=== PATIENT | male | born 1965 | race Caucasian/White ===

== ENCOUNTER 2016-08-12 17:16 | Inpatient (IN) ==
[2016-08-12] MEDS ORDERED: Nitroglycerin 0.4 MG TAB.SUBL SL ONE (18:36)
[2016-08-12 18:57] LABS: Hematocrit 38.4 % (37.5-50.1); Hemoglobin 13.5 g/dL (12.9-16.9)
[2016-08-12 19:10] LABS: BUN/Creatinine Ratio 22 (6-26); Blood Urea Nitrogen 20 mg/dL (8-26); Calcium 9.1 mg/dL (8.6-10.8); Carbon Dioxide 20 mEq/L (19-29); Chloride 109 mEq/L (98-109); Glucose 67 mg/dL (70-99); Osmolality,Calculated 289 (280-300); Potassium 3.6 mEq/L (3.5-4.5); Sodium 139 mEq/L (136-145); eGFR For African Americans > 60 (> 60); eGFR For Non-African Americans > 60 (> 60)
--- NOTE | 2016-08-12 20:21 | Emergency Department Note ---
Disposition Clinical Impression: Chest pain Qualifiers: Chest pain type: unspecified Qualified Code(s): R07.9 - Chest pain, unspecified Disposition: Admitted As Inpatient Condition: Good Time of Disposition: 19:50 General Adult HPI - General Chief complaint: ED Chest Pain Stated complaint: chest pain Time Seen by Provider: 08/12/16 18:03 Source: patient, EMS Limitations: no limitations Nursing Notes Reviewed: Yes Vital Signs Reviewed: Yes - History of Present Illness HPI Narrative: Chest pain about 10 days ago for which he was seen at outside hospital and had a stress test and was sent home. His pain was in the left side of his chest and sharp. Today while working midafternoon at rest he had chest pain that was more diffuse discomfort with pressure and went to his left arm. He is a diet controlled diabetic who is morbidly obese. He has had blood pressure high cholesterol. 1.2 years ago he has stress test and was also offered a heart catheterization in decline. He has no prior confirmed heart disease. His pain was relieved prior to arrival with aspirin and nitroglycerin glycerin pills pain was moderate has resolved. No clear exacerbating or alleviating factors Onset (ago): hour(s) Radiation: neck Pain Severity: moderate Pain Scale: 5 Quality: aching Consistency: now resolved Improves with: nothing Worsens with: nothing Associated symptoms: Reports: chest pain. Denies: confusion, cough, diaphoresis , malaise, nausea/vomiting - Related Data Home Medications Medication Instructions Recorded Confirmed Amitriptyline [Elavil] 25 mg PO HS 08/09/15 02/28/16 Budesonide/Formoterol 160/4.5 2 puff IH BIDR 08/09/15 02/28/16 [Symbicort 160/4.5] Cetirizine HCl [Zyrtec] 10 mg PO DAILY 08/09/15 02/28/16 Cholecalciferol (Vitamin D3) 1,000 unit PO DAILY 08/09/15 02/28/16 [Vitamin D] Gabapentin [Neurontin] 1,200 mg PO TID 08/09/15 02/28/16 Montelukast [Singulair] 10 mg PO DAILY 08/09/15 02/28/16 Omeprazole [PriLOSEC] 20 mg PO BIDAC 08/09/15 02/28/16 Paroxetine [Paxil] 30 mg PO DAILY 08/09/15 02/28/16 Albuterol Sulfate [Proventil Hfa] 2 puff IH QID 10/15/15 02/28/16 Amlodipine Besylate 10 mg PO DAILY 12/07/15 02/28/16 Aspirin 81 mg PO DAILY 12/07/15 02/28/16 Amiloride/HCTZ 5-50mg [Moduretic 1 tab PO DAILY 02/28/16 02/28/16 5-50mg] Docusate [Colace] 100 mg PO DAILY PRN 02/28/16 02/28/16 Allergies Allergy/AdvReac Type Severity Reaction Status Date / Time No Known Allergies Allergy Verified 08/09/15 14:28 Constitutional: Denies: fever, chills, weakness, weight change Eyes: Denies: eye pain, eye discharge, vision change ENT ED: Denies: ear pain, throat pain, dental pain, hearing loss, epistaxis, congestion, dysphagia Cardiovascular: Reports: as per HPI, chest pain Respiratory: Denies: cough, dyspnea, wheezes, hemoptysis, stridor Gastrointestinal: Denies: abdominal pain, nausea, vomiting, diarrhea, constipation, hematemesis, melena, hematochezia Genitourinary: Denies: urgency, dysuria, frequency, hematuria Musculoskeletal: Denies: back pain, neck pain, arthralgia, myalgia Integumentary: Denies: rash, abrasion, lesions Neurological: Denies: headache, weakness, numbness, paresthesias, confusion, abnormal gait, vertigo Psychiatric: Denies: anxiety, depression, suicidal thoughts, homicidal thoughts , auditory hallucinations, visual hallucinations Endocrine: Denies: fatigue Hematological/Lymphatic: Denies: easy bleeding, easy bruising Allergic/Immunologic: Denies: facial swelling, urticaria Past Medical History - Past Medical History Medical history: Reports: asthma, diabetes Psychiatric history: Reports: depression - Social History Smoking Status: Never smoker Smokeless Tobacco Status: No Alcohol use: Reports: none Drug use: Reports: none Physical Exam - General Limitations: no limitations General appearance: alert, in no apparent distress - Head Head exam: atraumatic, normocephalic, normal inspection - Eye Eye exam: Present: normal appearance, PERRL, EOMI - Expanded Eye Exam Pupils: Left: reactive - ENT ENT exam: normal exam, normal oropharynx, mucous membranes moist - Expanded ENT Exam External ear exam: Present: normal external inspection Mouth exam: Present: normal external inspection Teeth exam: Present: normal inspection Throat exam: Present: normal inspection - Neck Neck exam: Present: normal inspection, full ROM, trachea midline - Chest Chest inspection: Present: normal inspection, symmetric chest wall rise - Respiratory Respiratory exam: Present: normal lung sounds bilaterally - Cardiovascular Cardiovascular exam: Present: regular rate, normal rhythm, normal heart sounds - Abdominal Exam Abdominal exam: Present: soft, Non-Tender. Absent: tenderness, distention, guarding, rebound, rigidity - Extremities Exam Extremities exam: Present: normal inspection, full ROM. Absent: tenderness, pedal edema - Expanded Upper Extremity Exam Shoulder exam: Present: normal inspection, full ROM Arm exam: Present: normal inspection, full ROM Elbow exam: Present: normal inspection, full ROM Forearm/Wrist exam: Present: normal inspection, full ROM Hand exam: Present: normal inspection, full ROM Vascular exam: Normal: capillary refill, radial pulse - Expanded Lower Extremity Exam Hip/Pelvis exam: Present: normal inspection, full ROM Upper leg exam: Present: normal inspection, full ROM Knee exam: Present: normal inspection, full ROM Lower leg exam: Present: normal inspection, full ROM Ankle exam: Present: normal inspection, full ROM Foot/toe exam: Present: normal inspection, full ROM Neurovascular/Tendon exam: Absent: motor deficit, sensory deficit, tendon deficit - Back Exam Back exam: Present: normal inspection, full ROM. Absent: tenderness - Neurological Exam Neurological exam: Present: alert, oriented X3 - Expanded Neurological Exam Patient oriented to: Present: person, place, time Coma Scale Eye Opening: Spontaneous Coma Scale Motor Response: Obeys Commands Coma Scale Verbal Response: Oriented Coma Scale Total: 15 - Psychiatric Psychiatric exam: Present: normal affect, normal mood - Skin Skin exam: Present: warm, dry, intact, normal color Course Course Narrative: Patient was pain-free on my initial evaluation with developed chest pain again was given sublingual nitroglycerin. Pain once again improved. He has no pain at time of admission. All results prior to admission or unremarkable and his admission was discussed with the hospitalist at 7:58 PM Vital Signs Temperature 97.6 F 08/12/16 17:17 Pulse Rate 63 08/12/16 17:17 Respiratory Rate 16 08/12/16 17:17 Blood Pressure 127/94 08/12/16 17:17 O2 Sat by Pulse Oximetry 98 08/12/16 17:17 Temperature 97.6 F 08/12/16 17:17 Pulse Rate 64 08/12/16 19:00 Respiratory Rate 18 08/12/16 19:00 Blood Pressure 121/84 08/12/16 19:00 O2 Sat by Pulse Oximetry 97 08/12/16 19:00 Oxygen Delivery Oxygen Delivery Nasal Cannula Medical Decision Making - Lab Data Result diagrams: 08/12/16 18:48 08/12/16 18:48 Lab Results 08/12/16 08/12/16 08/12/16 Range/Units 18:48 18:48 18:48 Hgb 13.5 (12.9-16.9) g/dL Hct 38.4 (37.5-50.1) % Sodium 139 (136-145) mEq/L Potassium 3.6 (3.5-4.5) mEq/L Chloride 109 (98-109) mEq/L Carbon Dioxide 20 (19-29) mEq/L BUN 20 (8-26) mg/dL Creatinine 0.90 (0.72-1.25) mg/dL Est GFR ( Amer) > 60 (> 60) Est GFR (Non-Af Amer) > 60 (> 60) BUN/Creatinine Ratio 22 (6-26) Glucose 67 L (70-99) mg/dL Calculated Osmolality 289 (280-300) Calcium 9.1 (8.6-10.8) mg/dL Troponin I 0.01 (0-0.03) ng/mL - EKG Data EKG #1 EKG attestation: Yes I reviewed and interpreted this EKG. EKG results narrative: Normal sinus rhythm. No acute injury pattern. Intervals unremarkable EKG shows normal: sinus rhythm
[2016-08-12] MEDS ORDERED: *HR* Morphine 2 MG/ML SYRINGE IVP PRN (21:34)
[2016-08-12] MEDS ORDERED: Ondansetron 4 MG/2 ML VIAL IVP PRN (21:34)
[2016-08-12] MEDS ORDERED: Naloxone 0.4 MG/ML INJ IVP PRN (21:34)
[2016-08-12] MEDS ORDERED: hydrOXYzine pamoate 25 MG CAPSULE PO PRN (21:36)
[2016-08-12] MEDS ORDERED: Ipratropium/Albuterol Neb 3 ML IH PRN (21:40)
[2016-08-12] MEDS ORDERED: D5% in Water 1,000 ML IV PRN (21:43)
[2016-08-12] MEDS ORDERED: *HR* Dextrose 50 % in Water (Syg) 50 ML SYRINGE IVP PRN (21:43)
[2016-08-12] MEDS ORDERED: Dextrose Gel 15 GM PO PRN ×2 (21:43)
[2016-08-12] MEDS ORDERED: 0.9 % Sodium Chloride 1,000 ML IVC SCH (21:45)
--- NOTE | 2016-08-12 21:46 | Internal Med History&Physical ---
Date of Encounter: 08/12/16 Time of Encounter: 21:44 Assessment and Plan (1) Chest pain Current visit: Yes Status: Acute With very typical pain Continue Xarelto, start baby aspirin, Lipitor, consider starting beta mechelle May try to obtain stress test report from [facility] Order echocardiogram, start Nitrol paste, cardiology consult, telemetry, follow troponins, morphine as needed Qualifiers: Chest pain type: unspecified Qualified Code(s): R07.9 - Chest pain, unspecified (2) Hypertension Current visit: Yes Status: Acute Add hydralazine as needed Qualifiers: Hypertension type: essential hypertension Qualified Code(s): I10 - Essential (primary) hypertension (3) Diabetes Current visit: Yes Status: Acute Insulin sliding scale Qualifiers: Diabetes mellitus type: type 2 Diabetes mellitus complication status: without complication Diabetes mellitus skilled nursing insulin use: without intermediate frame tender use Qualified Code(s): E11.9 - Type 2 diabetes mellitus without complications (4) Chronic superficial venous thrombosis of left lower extremity Current visit: No Status: Chronic Continue Xarelto (5) Hypercoagulable state Current visit: No Status: Suspected Omeprazole for GI prophylaxis, he is a full code, is to be admitted as inpatient , high risk for ACS, time spent on this admission 40 minutes Internal Medicine - H&P: HPI Chief complaint: Chest pain Plans for Post Hospital Care: Home History of present illness: Mr. Ho is a 50 year old male from the [place], with past medical history of diabetes type 2 not insulin-dependent, hypertension, hyperlipidemia, right leg DVT currently on Xarelto. Comes to the emergency room complaining of chest pain that started at 2:30 PM, 7 out of 10 in intensity and radiated to the left arm and neck, pressure-like that improved with nitroglycerin. At the moment he is still complaining of chest pressure 3 out of 10 in intensity. His glucose was 67, his troponin is negative, his EKG is unremarkable, chest x-ray is normal. The patient says that he had a recent normal stress test at [facility] on August 02 and after that he felt bad for a few days and then better, but today the pain came back. [place] short of breath and easy at times with some lightheadedness. No other symptoms present. Past Med Surg Social Fam HX - Past Medical History Medical history: asthma, diabetes (Not insulin-dependent), other (Angioedema with lisinopril, asthma, right leg DVT with hypercoagulable state, superficial thrombophlebitis, asthma, vocal cord dysfunction, hyperlipidemia, mood disorder , left gynecomastia, DJD, fibromyalgia, hypertension) Psychiatric history: depression - Past Surgical History Surgical History: other (Dental surgery) - Social History Smoking Status: Never smoker (Chewed tobacco for 35 years but quit) Smokeless Tobacco Status: No Alcohol use: none (Quitting in ) Drug use: none - Additional Family History Additional family history: Father with CAD who had normal troponins with his [facility] , CK D, mom with lung cancer, sister with DVT Internal Medicine - H&P: Meds Budesonide/Formoterol 160/4.5 [Symbicort 160/4.5] 2 puff IH BIDR 08/09/15 [ History] Cetirizine HCl [Zyrtec] 10 mg PO DAILY 08/09/15 [History] Gabapentin [Neurontin] 1,200 mg PO TID 08/09/15 [History] Montelukast [Singulair] 10 mg PO DAILY 08/09/15 [History] Omeprazole [PriLOSEC] 40 mg PO DAILY 08/09/15 [History] Paroxetine [Paxil] 30 mg PO DAILY 08/09/15 [History] Albuterol Sulfate [Proventil Hfa] 2 puff IH QID 10/15/15 [History] Amlodipine Besylate 10 mg PO DAILY 12/07/15 [History] Aspirin 325 mg PO DAILY 12/07/15 [History] Albuterol Neb [Proventil Neb] 2.5 mg IH Q4HR 08/12/16 [History] Celecoxib [Celebrex] 200 mg PO DAILY 08/12/16 [History] Fluticasone Propionate Nasal [Flonase] 50 mcg NS BID 08/12/16 [History] Guaifenesin/Codeine Phosphate [Guaifen-Codeine 100-10 mg/5 ml] 10 ml PO TID PRN 08/12/16 [History] Hydroxyzine HCl 25 mg PO QID PRN 08/12/16 [History] Lactobacillus Acidophilus [Acidophilus] 1 cap PO BID 08/12/16 [History] Methocarbamol [Robaxin] 500 mg PO TID 08/12/16 [History] Tiotropium [place] [Spiriva Respimat] 2 puff IH DAILY 08/12/16 [History] Triamterene/HCTZ 37.5/25mg [Dyazide] 0.5 tab PO DAILY 08/12/16 [History] Allergies dabigatran etexilate [From Pradaxa] Allergy (Verified 08/12/16 20:37) Hives lisinopril Allergy (Verified 08/12/16 20:37) Anaphylaxis gluten Adverse Reaction (Verified 08/12/16 20:37) Gastrointestinal Upset pregabalin [From Lyrica] Adverse Reaction (Verified 08/12/16 20:37) Blurry Vision sertraline [From Zoloft] Adverse Reaction (Verified 08/12/16 20:37) Agitated All Systems PM: A 10-system review of systems was performed and is negative for pertinent findings except as documented above in the HPI. Review of systems: Had some nausea earlier today, no abdominal pain, other systems out of the 10 reviewed were negative - Constitutional Vitals: Temp Pulse Resp BP Pulse Ox 97.8 F 64 18 121/84 97 08/12/16 20:36 08/12/16 19:00 08/12/16 20:36 08/12/16 20:36 08/12/16 19:00 - Head Head exam: Present: atraumatic, normocephalic - Eye Eye exam: Present: PERRL, conjuntiva pink, sclera anicteric Pupils: Present: PERRL - Neck Neck exam general surgery: Present: supple, trachea midline. Absent: lymphadenopathy - Respiratory Respiratory exam: Present: CTAB. Absent: accessory muscle use, rales, rhonchi, wheezes - Cardiovascular Cardiovascular exam: Present: RRR, +S1, +S2. Absent: diastolic murmur, gallop, rubs, systolic murmur - GI/Abdominal GI/Abdominal exam: Present: normal bowel sounds, soft, no peritoneal signs. Absent: distended, tenderness - Extremities Exam Extremities exam: Present: warm, radial pulses palpable and symetrical. Absent : calf tenderness, cyanotic, pedal edema - Neurological Exam Neurological exam: Present: CN II-XII intact, oriented X3, no focal deficits. Absent: pronater drift, facial droop, speech deficit - Skin Skin exam: Present: dry, intact Internal Med - H&P Results - Labs CBC & Chem 7: 08/12/16 18:48 08/12/16 18:48
[2016-08-12] MEDS: Nitroglycerin 1 INCH/GM PACKET TP SCH (22:26)
[2016-08-12] MEDS: Gabapentin 400 MG CAPSULE PO SCH (22:33)
[2016-08-12] MEDS: Aspirin 81 MG TAB.CHEW PO SCH (22:33)
[2016-08-12] MEDS: Insulin LISPRO 300 UNITS/3 ML VIAL SQ SCH (22:34)
[2016-08-12] MEDS: D5% in 0.45% NACL 1,000 ML IVC SCH (22:38)
[2016-08-12] MEDS: Budesonide/Formoterol 160/4.5 MDI IH SCH ×2 (23:00→23:22)
[2016-08-13 01:56] LABS: BUN/Creatinine Ratio 19 (6-26); Blood Urea Nitrogen 20 mg/dL (8-26); Calcium 8.9 mg/dL (8.6-10.8); Carbon Dioxide 21 mEq/L (19-29); Chloride 110 mEq/L (98-109); Chol/HDL Ratio 4.6 (0-4.9); Cholesterol 170 mg/dL (< 200); Glucose 136 mg/dL (70-99); HDL Cholesterol 37 mg/dL (40-59); LDL Cholesterol,Calculated 96 mg/dL (0-99); Osmolality,Calculated 293 (280-300); Potassium 3.6 mEq/L (3.5-4.5); Sodium 139 mEq/L (136-145); Triglycerides 184 mg/dL (< 150); eGFR For African Americans > 60 (> 60); eGFR For Non-African Americans > 60 (> 60)
[2016-08-13] MEDS: Nitroglycerin 1 INCH/GM PACKET TP SCH ×3 (06:51→17:08)
[2016-08-13] MEDS: Insulin LISPRO 300 UNITS/3 ML VIAL SQ SCH ×4 (08:18→20:22)
[2016-08-13] MEDS: Aspirin 81 MG TAB.CHEW PO SCH (08:24)
[2016-08-13] MEDS: Gabapentin 400 MG CAPSULE PO SCH ×3 (08:24→20:23)
[2016-08-13] MEDS ORDERED: amLODIPine 5 MG TABLET PO SCH (09:00)
[2016-08-13] MEDS ORDERED: Perflutren Lipid Microsphere 1.3 ML in 0.9 % Sodium Chloride 8.7 ML IVP ONE (09:26)
--- NOTE | 2016-08-13 10:32 | Cardiology Consult Note ---
Date of Encounter: 08/13/16 Time of Encounter: 10:23 Assessment and Plan (1) Chest pain Current Visit: Yes Status: Acute Recurrent chest pain. Typical and atypical features.Recent work-up at [facility] on 08/02/16 for the same pain. Work-up negative per pt. We will order records. Troponin negative x 3. EKG shows no acute changes. TTE pending. TTE in 2013- EF 60-65%, no significant valvular disease. Multiple cardiac risk factors including DM type II, HTN, HLD, obesity, nicotine use, and extensive family history. Recommend starting asa and statin as you have done. Stop norvasc and start beta- mechelle. Aggressive risk factor modification. Close out-pt cardiology follow-up. Qualifiers: Chest pain type: unspecified Qualified Code(s): R07.9 - Chest pain, unspecified (2) Diabetes Current Visit: Yes Status: Acute Insulin sliding scale. States blood sugars are brittle, no well controlled at home. Hospitalist following. Qualifiers: Diabetes mellitus type: type 2 Diabetes mellitus complication status: without complication Diabetes mellitus assistant terminal manager insulin use: without penitentiary use Qualified Code(s): E11.9 - Type 2 diabetes mellitus without complications (3) Hypertension Current Visit: Yes Status: Acute B/p controlled. Qualifiers: Hypertension type: essential hypertension Qualified Code(s): I10 - Essential (primary) hypertension Discussion w patient/family: The assessment and plan as outlined above was discussed with the patient and/or family members who expressed understanding and agreement. All questions were answered. Thank you for involving us in the care of your patient. Please call with any questions. History of Present Illness Consult date: 08/13/16 Requesting physician: Glo Quinones Consult reason: Recurrent chest pain Chief complaint: Chest pain History of present illness: Mr. Ho is a 50 year old male with a history of DM type II, hypertension, hyperlipidemia, TOMAS on c-pap, and obesity who presents with chest pain. He c/o intermittent left sided chest pressure radiating to his neck and left arm. He associates his symptoms with nausea and SOB. Physical activity increases his pain. His pain also occurs at rest. His pain is relieved with NTG. He was seen at [facility] 08/02/16 for the same pain and underwent a stress test that was negative per his report. He continued to have pain after his admission. Continues to have left sided pressure on my exam. Past Med Surg Social Fam HX - Past Medical History Medical history: asthma, diabetes, fibromyalgia, hyperlipidemia, hypertension, seizures, other Psychiatric history: depression - Past Surgical History Surgical History: other - Social History Smoking Status: Never smoker Smokeless Tobacco Status: No Alcohol use: none Drug use: none - Family History Grandfather Living Status: Cause of : aortic anyeurism Hx Family Cardiac Disorders: Yes Father Living Status: Cause of : heart attack Hx Family Cardiac Disorders: Yes (heart attack at 53) Mother Hx Family Cardiac Disorders: Yes (heart attack at 53) Medications and Allergies Budesonide/Formoterol 160/4.5 [Symbicort 160/4.5] 2 puff IH BIDR 08/09/15 [ History] Cetirizine HCl [Zyrtec] 10 mg PO DAILY 08/09/15 [History] Gabapentin [Neurontin] 1,200 mg PO TID 08/09/15 [History] Montelukast [Singulair] 10 mg PO DAILY 08/09/15 [History] Omeprazole [PriLOSEC] 40 mg PO DAILY 08/09/15 [History] Paroxetine [Paxil] 30 mg PO DAILY 08/09/15 [History] Albuterol Sulfate [Proventil Hfa] 2 puff IH QID 10/15/15 [History] Amlodipine Besylate 10 mg PO DAILY 12/07/15 [History] Albuterol Neb [Proventil Neb] 2.5 mg IH Q4HR 08/12/16 [History] Celecoxib [Celebrex] 200 mg PO DAILY 08/12/16 [History] Fluticasone Propionate Nasal [Flonase] 50 mcg NS BID 08/12/16 [History] Guaifenesin/Codeine Phosphate [Guaifen-Codeine 100-10 mg/5 ml] 10 ml PO TID PRN 08/12/16 [History] Hydroxyzine HCl 25 mg PO QID PRN 08/12/16 [History] Lactobacillus Acidophilus [Acidophilus] 1 cap PO BID 08/12/16 [History] Methocarbamol [Robaxin] 500 mg PO TID 08/12/16 [History] Tiotropium [place] [Spiriva Respimat] 2 puff IH DAILY 08/12/16 [History] Triamterene/HCTZ 37.5/25mg [Dyazide] 0.5 tab PO DAILY 08/12/16 [History] Allergies dabigatran etexilate [From Pradaxa] Allergy (Verified 08/12/16 20:37) Hives lisinopril Allergy (Verified 08/12/16 20:37) Anaphylaxis gluten Adverse Reaction (Verified 08/12/16 20:37) Gastrointestinal Upset pregabalin [From Lyrica] Adverse Reaction (Verified 08/12/16 20:37) Blurry Vision sertraline [From Zoloft] Adverse Reaction (Verified 08/12/16 20:37) Agitated All Systems Review: A 10-system review of systems was performed and is negative for pertinent findings except as documented above in the HPI. Physical Examination Vital Signs, Last 4 Hours Temp Pulse Resp BP Pulse Ox 08/13/16 08:00 97.4 F L 66 16 125/77 96 General: Conversant, No Apparent Distress, Other (Obese male) HEENT: Atraumatic, Normocephaly, Mucus Membranes Moist Neck: No JVD, Normal carotid pulses Cardiac: Reg Rate and Rhythm, Normal S1 and S2, No Murmur Lungs: Normal Breath Sounds, No Wheeze, Rales, Rhonchi Neuro: Alert and responsive, No focal deficits noted Abdomen: Soft, Non-Tender Skin: No rashes noted on visualized skin Musculoskeletal: No Chest Wall Tenderness Extremities: No Clubbing, No Cyanosis, No Edema, Normal Pulses Results 08/12/16 18:48 08/13/16 01:14 Lab Results 08/13/16 08/13/16 08/13/16 01:14 01:14 06:58 Sodium 139 Potassium 3.6 Chloride 110 H Carbon Dioxide 21 BUN 20 Creatinine 1.04 Glucose 136 H Calcium 8.9 Troponin I 0.00 0.01 - Imaging and Cardiology Stress Test: pending (Records ordered. Stress test in 2012 negative for ischemia.) Echo: pending Consult Discharge Plan - Plan [facility]errals: [facility]Primary Care Provider[facility] -
[2016-08-13] MEDS: Budesonide/Formoterol 160/4.5 MDI IH SCH (10:36)
--- NOTE | 2016-08-13 11:25 | ECHO - Doppler Report ---
Echo with Imaging Enhancement Agent Name: Dillon Ho Date of Study: 08/13/2016 Date: 1965 Ht: 70.0 in Medical Record#: [id number] Age: 50 Wt: 304.0 lb Gender: Male BSA: 2.49 Order #: [id number] Location: [facility] Room #: 3B Reading Physician: Iker Lemon DO, FACNayan, JASS ESCUDERO Boat Dispatcher: Lida Whittaker Ordering Physician: Osman Calderon MD Primary Physician: [facility] Indications: Chest pain Impressions: Technically sub-optimal due to body habitus. LVEF 60-65%. Grossly normal LV chamber size and function. Mild concentric left ventricular hypertrophy. Moderate left ventricular diastolic dysfunction. Grossly, the right ventricle appears mildly dilated with normal function. Unable to estimate RVSP due to lack of TR jet. No obvious significant valvular dysfunction. Left Ventricular Wall Motion: Rest Echo Findings All wall segments showed normal motion. Findings: Study Quality * Technically sub-optimal due to body habitus. ECG Findings * Normal sinus rhythm. Left Ventricle * LVEF 60-65%. * Grossly normal LV chamber size and function. * Mild concentric left ventricular hypertrophy. * Moderate left ventricular diastolic dysfunction. Right Ventricle * The right ventricle appears mildly dilated with normal function. Left Atrium * Left atrium is not well visualized. Grossly appears at least mildly dilated. Right Atrium * Right atrium is not well visualized. Interatrial Septum * Interatrial septum not well evaluated. Aortic Valve * Aortic valve not well visualized. * No aortic regurgitation. * No aortic stenosis. Mitral Valve * Normal mitral valve structure and function. * No mitral regurgitation. * No mitral stenosis. Tricuspid Valve * Tricuspid valve not well visualized. * Trace tricuspid regurgitation. * Unable to estimate RVSP due to lack of TR jet. Pulmonic Valve * Pulmonic valve not well visualized. Aorta * Normally sized aortic root. Pericardium * The pericardium appears normal. IVC * The IVC is not well evaluated. Pulmonary Artery * Pulmonary artery not well visualized. History Hypertension Diabetes Family History of CAD 02/25/13 a Previous Echo was performed. Contrast: Definity 1.3 ml in 8.7 ml of saline 2 ml. Measurements: BP: 97/ 58 2D Normal Values RVIDd: 3.20 cm <2.7 cm IVSd: 1.40 cm 0.6 - 1.0 cm LVIDd: 4.20 cm 3.7 - 5.6 cm LVPWd: 1.40 cm 0.6 - 1.1 cm LVIDs: 3.10 cm 1.5 - 3.6 cm AO: 3.00 cm < 4.0 cm LA: 3.60 cm 2.0 - 4.0cm %FS: 26.20 cm >25 % LA volume: 35 Mitral Valve Peak E:.90 m/sec Peak A:.72 m/sec E/A Ratio:1.3 Peak E' Lat Chaim:7.6 cm/s Peak E' Med Chaim:7.21 cm/s E/E' Lat Ratio:11.8 E/E' Med Ratio:12.5 Tricuspid Valve TV Regurg Peak Grad: 7.00mmHg TV Regurg Peak Chaim: 1.30m/sec Updated by Iker Lemon DO, LICO, JASS ESCUDERO on 08/13/2016 11:17:32 AM electronically signed on 08/13/2016 11:19:15 AM with status of Final Wall Motion [place]: 1=Normal, 2=Hypokinesis, 3=Akinesis, 4=Dyskinesis, 5=Aneurysmal, 6=Hyperkinetic, X=Not Visualized (Blank)=Missing
--- NOTE | 2016-08-13 11:58 | Electrocardiograph Report ---
[facility] Test Date: 2016-08-12 Pat Name: Dillon Ho Department: 104 Room: 3B47 Gender: M Cyber Systems Engineer: OZZY : 1965 Requested By: Sukhdev Mann Order Number: [id number] Reading MD: Arya Springer MD Measurements Intervals [place] Rate: 62 P: 30 DC: 213 QRS: -3 QRSD: 68 T: 16 QT: 391 QTc: 396 Interpretive Statements SINUS RHYTHM WITH FIRST DEGREE AV BLOCK POOR R WAVE PROGRESSION Electronically Signed On 08-13-16 11:57:23 EST by Arya Springer MD
[2016-08-13] MEDS ORDERED: GI Cocktail 40 ML EACH PO PRN (13:01)
[2016-08-13] MEDS: *HR* Rivaroxaban 10 MG TABLET PO SCH (16:22)
[2016-08-13] MEDS: D5% in 0.45% NACL 1,000 ML IVC SCH (16:22)
--- NOTE | 2016-08-13 16:43 | Internal Med Progress Note ---
Date of Encounter: 08/13/16 Time of Encounter: 12:30 - Assessment and plan (1) Chest pain Current Visit: Yes Status: Acute Assessment and plan: Patient continues to endorse chest pressure but denies overt pain. Troponins negative 3. Chest x-ray negative. Stress test at [facility] was reviewed per cardiology and reported as negative on 08/02/16. Echocardiogram revealing ejection fraction of 60-65% with moderate diastolic dysfunction. Cardiology is on board. Plan is to rule out GERD with PPI and GI cocktail. If he is still symptomatic, possible heart catheter tomorrow. Nothing by mouth at midnight. ITS Impressions Chest X-Ray 08/12/16 18:12 IMPRESSION: No acute cardiopulmonary disease D/ / Segundo Cárdenas MD / Segundo Cárdenas MD Interpreting Provider: Segundo Cárdenas MD Echocardiogram impressions: Technically suboptimal due to body habitus. LVEF 60 -65%. Grossly normal LV chamber size and function. Mild concentric left ventricular hypertrophy. Moderate left ventricular diastolic dysfunction. Grossly, the right ventricle appears mildly dilated with normal function. Unable to estimate RVSP due to lack of TR jet. No obvious significant valvular dysfunction. Qualifiers: Chest pain type: unspecified Qualified Code(s): R07.9 - Chest pain, unspecified (2) Diabetes Current Visit: Yes Status: Chronic Assessment and plan: Appears well controlled however no recent A1c. Will add on to a.m. labs. Continue sliding scale while admitted. Qualifiers: Diabetes mellitus type: type 2 Diabetes mellitus complication status: without complication Diabetes mellitus jail insulin use: without terminal press operator use Qualified Code(s): E11.9 - Type 2 diabetes mellitus without complications (3) Hypertension Current Visit: Yes Status: Chronic Assessment and plan: Controlled. We will continue to trend and adjust medications as indicated. On amlodipine and triamterene/HCTZ at home. These have been discontinued per cardiology, metoprolol has been added to his regimen Qualifiers: Hypertension type: essential hypertension Qualified Code(s): I10 - Essential (primary) hypertension (4) Hypercoagulable state Current Visit: No Status: Chronic Assessment and plan: Continue Xarelto (5) Chronic superficial venous thrombosis of left lower extremity Current Visit: No Status: Chronic (6) Morbid obesity with BMI of 40.0-44.9, adult Current Visit: Yes Status: Chronic - Subjective Interval history: Patient seen and examined. On examination, patient resting supine in bed playing on his phone. Patient continued to endorse chest pressure that is worsened with movement and deep inspiration. He denies shortness of breath at this time. - Constitutional Vitals: Temp Pulse Resp BP Pulse Ox 97.8 F 60 17 125/86 93 L 08/13/16 15:38 08/13/16 15:38 08/13/16 15:38 08/13/16 15:38 08/13/16 15:38 General appearance: Present: A&O X 3, morbidly obese, pleasant, no acute distress, answers questions appropriately - Head Head exam: Present: atraumatic, normocephalic - Eye Eye exam: Present: PERRL, conjuntiva pink, sclera anicteric Pupils: Present: PERRL - Neck Neck exam general surgery: Present: supple, trachea midline. Absent: lymphadenopathy - Respiratory Respiratory exam: Present: chest wall tenderness, decreased breath sounds ( Secondary to body habitus). Absent: accessory muscle use, rales, respiratory distress, rhonchi, wheezes - Cardiovascular Cardiovascular exam: Present: RRR, +S1, +S2. Absent: diastolic murmur, gallop, rubs, systolic murmur - GI/Abdominal GI/Abdominal exam: Present: normal bowel sounds, soft, no peritoneal signs. Absent: distended, tenderness - Extremities Exam Extremities exam: Present: warm, radial pulses palpable and symetrical. Absent : calf tenderness, cyanotic, pedal edema - Neurological Exam Neurological exam: Present: alert, CN II-XII intact, normal gait, oriented X3, no focal deficits, strengths equal and symetr throughout. Absent: pronater drift, facial droop, speech deficit - Skin Skin exam: Present: dry, intact, normal color, warm Internal Medicine: Result - Labs CBC & Chem 7: 08/12/16 18:48 08/13/16 01:14 Labs: BMP 08/13/16 01:14 Sodium 139 Potassium 3.6 Chloride 110 H Carbon Dioxide 21 BUN 20 Creatinine 1.04 Glucose 136 H Calcium 8.9 Cardiac Enzymes 08/13/16 08/13/16 08/13/16 Range/Units 01:14 06:58 13:28 Troponin I 0.00 0.01 0.00 (0-0.03) ng/mL Consult Discharge Plan - Plan [facility]: [facility] [Primary Care Provider] -
[2016-08-13] MEDS: Fluticasone Propionate Nasal 50 MCG/SPRAY BOTTLE NS SCH (20:22)
[2016-08-13] MEDS: Acetaminophen 325 MG TABLET PO PRN (21:27)
[2016-08-14] MEDS: Nitroglycerin 1 INCH/GM PACKET TP SCH ×5 (00:24→23:03)
[2016-08-14] MEDS: Budesonide/Formoterol 160/4.5 MDI IH SCH ×3 (00:27→22:56)
[2016-08-14 05:06] LABS: INR 1.7; Prothrombin Time 18.7 Seconds (9.4-12.1)
[2016-08-14 05:09] LABS: Basophils # 0.1 K/mcL (0.0-0.2); Basophils % 1.1 %; Eosinophils # 0.3 K/mcL (0.0-0.6); Eosinophils % 3.4 %; Hematocrit 38.3 % (37.5-50.1); Hemoglobin 12.7 g/dL (12.9-16.9); Immature Granulocytes % 0.5 % (0-4); Lymphocytes # 2.5 K/mcL (0.6-4.6); Lymphocytes % 31.6 %; Mean Corpuscular HGB Conc 33.2 g/dL (31.6-35.5); Mean Corpuscular Hemoglobin 27.7 pg (28.0-33.3); Mean Corpuscular Volume 83.4 fL (83.0-100.0); Mean Platelet Volume 8.6 fL (9.4-12.4); Monocytes # 0.7 K/mcL (0.0-1.3); Monocytes % 8.5 %; Neutrophils # 4.4 K/mcL (1.6-8.9); Platelet Count 211 K/mcL (140-400); Red Blood Count 4.59 M/mcL (4.19-5.50); Red Cell Distribution Width 14.1 % (11.5-14.5); Segmented Neutrophils % 54.9 %
[2016-08-14 05:24] LABS: BUN/Creatinine Ratio 20 (6-26); Blood Urea Nitrogen 19 mg/dL (8-26); Calcium 8.8 mg/dL (8.6-10.8); Carbon Dioxide 23 mEq/L (19-29); Chloride 112 mEq/L (98-109); Glucose 113 mg/dL (70-99); Osmolality,Calculated 295 (280-300); Potassium 3.9 mEq/L (3.5-4.5); Sodium 141 mEq/L (136-145); eGFR For African Americans > 60 (> 60); eGFR For Non-African Americans > 60 (> 60)
[2016-08-14 05:29] LABS: Hemoglobin A1C 5.2 %
[2016-08-14] MEDS: Insulin LISPRO 300 UNITS/3 ML VIAL SQ SCH ×4 (07:51→21:08)
[2016-08-14] MEDS: D5% in 0.45% NACL 1,000 ML IVC SCH ×2 (08:01→22:48)
[2016-08-14] MEDS: Aspirin 81 MG TAB.CHEW PO SCH (08:02)
[2016-08-14] MEDS: Loratadine 10 MG TABLET PO SCH (08:02)
[2016-08-14] MEDS: Gabapentin 400 MG CAPSULE PO SCH ×3 (08:03→21:10)
[2016-08-14] MEDS: Fluticasone Propionate Nasal 50 MCG/SPRAY BOTTLE NS SCH ×2 (08:03→21:11)
--- NOTE | 2016-08-14 10:18 | Pre-Sedation Evaluation ---
Pre-sedation evaluation - Pre-sedation checklist Date of procedure: 08/14/16 Procedure: [facility] Recent Vitals: Last Vital Signs Temp 97.5 F L 08/14/16 06:56 Pulse 70 08/14/16 08:08 Resp 16 08/14/16 06:56 BP 117/78 08/14/16 08:08 Pulse Ox 92 L 08/14/16 08:10 H&P (including ROS) documented in medical record: Yes Previous reaction to sedatives/anesthetics: No Dietary Status: NPO after Midnight Airway Assessment: Patient can open mouth completely, TMJ function normal ASA Classification *see protocol: CLASS II-Mild systemic disease Plan of Care: Pt appropriate candidate for procedure/moderate/conscious sedation , Risks/benefits of procedure/sedation discussed w/ patient/family
--- NOTE | 2016-08-14 10:33 | Cardiology Progress Note ---
Date of Encounter: 08/14/16 Time of Encounter: 10:30 Assessment and Plan (1) Chest pain Current Visit: Yes Status: Acute Mr. Ho continues to have chest pain despite starting beta mechelle, aspirin and statin. He had an episode of chest pain this morning and denied improvement of symptoms with GI cocktail. He has risk factors of DM, HTN, HPL, male gender, morbid obesity and premature family history of CAD. He is interested in pursuing a C. The R/B/A of the procedure were discussed. He was quoted a 1% chance of, not limited to but including , stroke, bleeding , RI, need for emergent surgery, renal failure. He expressed understanding and verbalized agreement to proceed. Qualifiers: Chest pain type: unspecified Qualified Code(s): R07.9 - Chest pain, unspecified Discussion w patient/family: The assessment and plan as outlined above was discussed with the patient and/or family members who expressed understanding and agreement. All questions were answered. Thank you for involving us in the care of your patient. Please call with any questions. Subjective Principal diagnosis: Chest Pain Interval history: Mr. Ho had an episode of his typical chest pain this morning. He states GI cocktail did not help his symptoms. No new symptoms to report. Objective Vital Signs, Last 4 Hours Temp Pulse Resp BP Pulse Ox 08/14/16 08:10 92 L 08/14/16 08:08 70 117/78 08/14/16 06:56 97.5 F L 58 16 112/65 92 L General: Conversant, No Apparent Distress HEENT: Mucus Membranes Moist Neck: Other (JVP difficult to assess) Cardiac: Reg Rate and Rhythm, Normal S1 and S2, No Murmur Lungs: Normal Breath Sounds Neuro: Alert and responsive, No focal deficits noted Abdomen: Soft, Other (normal bowel sounds) Extremities: Other (mild bilateral LE edema) Results 08/14/16 04:20 08/14/16 04:20 Lab Results 08/13/16 08/14/16 08/14/16 13:28 04:20 04:20 WBC 8.0 Hgb 12.7 L Hct 38.3 Plt Count 211 INR 1.7 Sodium Potassium Chloride Carbon Dioxide BUN Creatinine Glucose Calcium Troponin I 0.00 08/14/16 04:20 WBC Hgb Hct Plt Count INR Sodium 141 Potassium 3.9 Chloride 112 H Carbon Dioxide 23 BUN 19 Creatinine 0.97 Glucose 113 H Calcium 8.8 Troponin I - Imaging and Cardiology Echo: report reviewed, image reviewed - EKG Interpretation EKG results cardiology: other (24h telemetry was reviewed demonstrating a sinus pauses at nighttime, longest in duration 3.8 seconds, no other dysrhythmia) Consult Discharge Plan - Plan [facility]errals: [facility] [Primary Care Provider] -
[2016-08-14] MEDS ORDERED: Verapamil 5 MG/2 ML VIAL ONE (13:21)
[2016-08-14] MEDS ORDERED: 0.9 % Sodium Chloride 1,000 ML ONE (13:21)
[2016-08-14] MEDS ORDERED: Nitroglycerin 1,000 MCG/10 ML VIAL IV ONE (13:22)
[2016-08-14] MEDS ORDERED: *HR* Heparin 10,000 UNIT/10 ML VIAL ONE (13:22)
[2016-08-14] MEDS ORDERED: Heparin 1,000 UNITS/500 mL NS 500 ML ONE (13:22)
[2016-08-14] MEDS ORDERED: *HR* Midazolam HCl 2 MG/2 ML VIAL ONE (13:58)
[2016-08-14] MEDS ORDERED: *HR* FentaNYL (PF) 100 MCG/2 ML VIAL ONE (13:59)
--- NOTE | 2016-08-14 14:47 | Invasive Diagnostic Lab Proc ---
Name: Dillon Ho Date of Study: 08/14/2016 Date: 1965 Ht: 70.0in Medical Record#: [id number] Age: 50 Wt: 289.47lb Gender: Male BSA: 2.44 Order #: [id number] BMI: 41.53 Physicians Procedure Physician: Arya Springer MD, [facility] Referring MD: Referring MD: Staff Name Position Time In Tanja Moore RT (R) Monitor 02:08 PM Irving Ambrosen RT (R) Scrub 02:08 PM Elizabeth Ho RN Web Master 02:08 PM Indications Indication Unstable Angina Procedures Performed Procedure L HRT ARTERY/VENTRICLE ANGIO Pre-Procedure Checklist Informed consent is complete signed and on chart. H\\T\\P is on chart. ID band is on and ID verified with patient. Patient NPO for procedure The procedure was described for the patient and questions were answered. Blood Pressure: 136/81 ECG is on chart. Rhythm: NSR Plan of Care Patient will tolerate the procedure without complications. Adequate level of comfort will be maintained. Hemodynamics will remain stable Patient will recover from procedure without complications. Respiratory function will be maintained. Cardiac rhythm will remain stable. Patient temperature will be maintained. Patient and/or family have verbalized understanding of the procedure. Patient Education Chief Complaint/Reason for Test: Cardiac Cath Developmental Category: Adult (18-64 years) Developmentally Appropriate for Age: Yes Learning Barriers: None Education Needs: Procedure Education Method: Verbal Information Taught: Cardiac Cath Educational Evaluation: Able to repeat information Intravenous Access Time IV Size Location DC'd Fluid/Drip Rate Units RN 01:06 PM 22g 1" Patent On Arrival Rt Antecubital 0.9NaCl 25 ml/hr Elizabeth Ho RN Allergies pradaxa gluten lyrica lisinopril sertraline Vital Signs Time BP (mmHg) HR (bpm) O2 Sat. RR (bpm) LOC 02:14 PM / % 5 = Fully awake and oriented or at pre-proc level 02:14 PM / % 4 = Oriented but drowsy 02:09 PM 136 / 81 58 98 % 15 02:13 PM 135 / 77 57 96 % 17 02:18 PM 132 / 81 58 94 % 20 02:24 PM 127 / 81 54 95 % 9 02:28 PM 129 / 80 51 94 % 11 02:33 PM 109 / 70 59 97 % 18 02:38 PM 115 / 69 % Procedural Medications Time Medication Dose Units Method Given By 02:14 PM Oxygen 2 L/min nasal cannula Elizabeth Ho RN 02:10 PM Versed 2 mg Intravenous Elizabeth Ho RN 02:10 PM Fentanyl 50 mcg Intravenous Elizabeth Ho RN 02:22 PM Lidocaine 2% 0.5 ml Subcutaneous Arya Springer MD, [facility] 02:31 PM Heparin 4000 units Nitroglycerin 200 mcg Verapamil 2.5 mg Intraarterial Arya Springer MD, [facility] ASA Classification: CLASS II- Mild systemic disease (i.e. well-controlled diabetes, hypertension, asthma, cigarette smoking) Roxana Score Preprocedure Postprocedure Activity 2- Moves 4 extremities sustained head lift Activity 2- Moves 4 extremities sustained head lift Circulation 2- SBP +/= 20 points of pre-anesthetic level Circulation 2- SBP +/= 20 points of pre-anesthetic level Consciousness 2- Awake and alert oriented x 3 Consciousness 2- Awake and alert oriented x 3 O2 Saturation 2- Able to maintain O2 satruation of 92% on room air O2 Saturation 2- Able to maintain O2 satruation of 92% on room air Respiratory 2- Able to deep breathe and cough well Respiratory 2- Able to deep breathe and cough well Total Score 10 Total Score 10 Contrast Agent: Isovue Diagnostic Contrast: 40 ml Total Contrast: 40 ml Fluoro Dose: 172 mGy Procedure Log Time Note Enter By 02:07 PM CathStat 02:08 PM Vitals capture started with the following parameters, Patient=Adult, Interval=5 min, Initial Vhxrewbd=631 mmHg, Deflation Rate=5 mmHg, Cuff placed on Left Arm 02:08 PM Pt arrived to labor relations officer 2 at 14:08 twilson 02:08 PM Physician arrived 14: tw 02:08 PM Shaun and pam completed 02:08 PM Sign in performed according to hospital policy. twilson 02:08 PM Procedure start 14: twilson 02:08 PM ASA Class CLASS II- Mild systemic disease (i.e. well-controlled diabetes, hypertension, asthma, cigarette smoking) twilson 02:08 PM Tanja Moore RT (R) Position: Monitor Time in: 14: 02:08 PM Keyla Ambrose RT (R) Position: Scrub Time in: 14: 02:08 PM Elizabeth Ho RN Position: Web Master Time in: 14:08 twilson 02:08 PM Patient charges- Angio tray pack, Navilyst 3mm J, Pulse Oximetry and ACIST tubing and transducer twilson : PM IV Supplies used: J loop Angio Cath. twilson 02:08 PM Case Delayed no twilson 02:09 PM HR=58 bpm, SAZK=727/81 mmhg, SpO2=98.0 %, Resp=15 B/min 02:10 PM Time: 14:10 Versed 2 mg Intravenous Given by Elizabeth Ho RN twilson 02:10 PM Time: 14:10 Fentanyl 50 mcg Intravenous Given by Elizabeth Ho RN twilson 02:13 PM HR=57 bpm, TLBU=447/77 mmhg, SpO2=96.0 %, Resp=17 B/min 02:13 PM Hair removed from procedure site in holding area using clippers. Right wrist prepped with Chloraprep by Tanja Moore (R) then patient draped. Skin intact. twilson :14 PM Hair removed from procedure site in holding area using clippers. Right groin prepped with Chloraprep by Tanja Moore (R) then patient draped. Skin intact. twilson :14 PM Time: 14:14 Patient comfortable and pain free: Yes :14 PM Time: 14:14LOC: 5 = Fully awake and oriented or at pre-proc level twilson :14 PM Time: 14:14 Oxygen on at 2 L/min per nasal cannula by Elizabeth Ho RN twilson 02:15 PM Recorded ECG: HR=60 Condition=Condition 1 02:18 PM HR=58 bpm, SQHX=025/81 mmhg, SpO2=94.0 %, Resp=20 B/min 02:21 PM Pressure channel 2 zeroed. 02:21 PM Time out performed according to hospital policy twilson : PM Time: 14:22 0.5 ml Lidocaine 2% to right radial Subcutaneous Given by Arya Springer MD, [facility] twilson : PM Access obtained by percutaneous puncture. 6Fr 10cm Terumo Glidesheath sheath placed in right Radial artery. [id number] twilson 02:23 PM 5Fr TIG catheter inserted over the wire [facility] twilson : PM Pressure channel 2 zeroed. :24 PM Wire removed, intact. twilson : PM HR=54 bpm, BNSP=084/81 mmhg, SpO2=95.0 %, Resp=9 B/min 02: PM 0.035 150cm VSI Satya-Torque wire [id number] : PM Wire removed, intact. : PM LCA angiography performed in multiple views. : PM Recorded Pressure: Ao, HR=56, Condition=Condition 1 (Aorta) Ao 123/92/107 02:26 PM Recorded Pressure: Ao, HR=51, Condition=Condition 1 (Aorta) Ao 119/88/102 02: PM RCA angiography performed in multiple views. : PM Catheter removed 5Fr Pigtail catheter inserted over the wire DN Catheter selectively placed in left ventricle tw PM Wire removed, intact. PM Bolus angiogram of left Ventricle complete: 10 ml/sec for a total of 20 mls PM Recorded Pressure: LV, HR=56, Condition=Condition 1 (Left Ventricle) LV 133/20/37 02: PM HR=51 bpm, VSTL=979/80 mmhg, SpO2=94.0 %, Resp=11 B/min 02: PM Time: 14:14 Patient comfortable and pain free: Yes PM Recorded Pressure: LV, Ao, HR=56, Condition=Condition 1 (Left Ventricle) LV 131/23/39, (Aorta) Ao 122/68/100 02:29 PM Time: 14:14LOC: 4 = Oriented but drowsy PM Catheter removed PM Coronary Dominance: Left PM Procedure completed at 14:30 tw PM Sign out completed: Radiation Dose 171.99 mGy Fluoro Time: 1.2 Isovue 370 - 200ml contrast 40 ml given by Arya Springer MD, [facility]. Complications: NoneConfirmed administered medications: Yes : PM Isovue 370 - 200ml,1 Bottle(s) used. : PM Arterial sheath pulled, Vasc Band closure device used and was Successful S/N. PM Time: 14:31 Patient given 4,000 units Heparin, 200 mcg Nitroglycerin, and 2.5 mg Verapamil Intraarterial by Arya Springer MD, [facility] twilson 02:33 PM Family placed in consult room. twilson 02:33 PM 10 ml air in Vasc Band. twilson 02:33 PM HR=59 bpm, TBFC=259/70 mmhg, SpO2=97.0 %, Resp=18 B/min 02:34 PM Post ECG NSR twilson 02:35 PM Post Blood Pressure 109/70 twilson 02:36 PM 14:36 Post Pulses Bilateral DP \\T\\ PT 2+ twilson 02:36 PM 14:36 Post Pulses Bilateral radial 2+ twilson 02:36 PM Information taught Cardiac Cath and Vasc Band twilson 02:36 PM Education needs Procedure, Plan of Care, and Responsibilities of Patient in Care twilson 02:36 PM Learning barriers :None twilson 02:36 PM Education Methods Verbal twilson 02:36 PM Education evaluation Able to repeat information twilson 02:36 PM Site status No bleeding/hematoma - Rt Wrist as reported by Keyla Ambrose RT (R) at 14:36 twilson 02:36 PM Delay to floor No twilson 02:38 PM IAOE=120/69 mmhg 02:39 PM Report given to Ana Luisa MYERS Pt taken to 3B Room #47. 14:39 twilson 02:39 PM Family placed in consult room. twilson 02:41 PM Patient out of room: 14:41 twilson Complications Complication None Hemodynamics Pressures Site Systolic/A Wave Diastolic/V Wave Mean AO 123 92 107 AO 119 88 102 LV 133 20 37 LV 131 23 39 AO 122 68 100 Post Procedure Information Blood Pressure: 109/70 mmHg Rhythm: NSR Post procedural instructions were given Closure Device Time Device Success/Fail 08/14/2016 2:32:00 PM Mechanical Compression Successful Site Checks Time Location Status Staff Sheath In? Note 02:36 PM Rt Wrist No bleeding/hematoma Keyla Ambrose RT (R) Pulses Time Site Pre-Procedure Post-Procedure Note 08/14/2016 1:06:00 PM Bilateral DP \\T\\ PT 2+ 08/14/2016 1:06:00 PM Bilateral radial 2+ 2:36:00 PM Bilateral DP \\T\\ PT 2+ 2:36:00 PM Bilateral radial 2+ Updated by Tanja Moore RT (R) on 08/14/2016 2:42:21 PM electronically signed on 08/14/2016 2:42:50 PM with status of Final
--- NOTE | 2016-08-14 15:16 | Internal Med Progress Note ---
Date of Encounter: 08/14/16 Time of Encounter: 14:15 - Assessment and plan (1) Chest pain Current Visit: Yes Status: Acute Assessment and plan: Patient continues to endorse chest pressure. He states that his symptoms that are already started to let up prior to receiving the GI cocktail so he does not think that the GI cocktail helped him. Cardiology on board, plan is for a left heart catheter today. He also endorses mild shortness of breath above his norm with minimal exertion. Echocardiogram revealing ejection fraction of 60-65% with moderate diastolic dysfunction, patient may be a candidate for diuretic therapy. Cardiology on board. 08/13/16 Patient continues to endorse chest pressure but denies overt pain. Troponins negative 3. Chest x-ray negative. Stress test at [facility] was reviewed per cardiology and reported as negative on 08/02/16. Echocardiogram revealing ejection fraction of 60-65% with moderate diastolic dysfunction. Cardiology is on board. Plan is to rule out GERD with PPI and GI cocktail. If he is still symptomatic, possible heart catheter tomorrow. Nothing by mouth at midnight. ITS Impressions Chest X-Ray 08/12/16 18:12 IMPRESSION: No acute cardiopulmonary disease D/ / Segundo Cárdenas MD / Segundo Cárdenas MD Interpreting Provider: Segundo Cárdenas MD Echocardiogram impressions: Technically suboptimal due to body habitus. LVEF 60 -65%. Grossly normal LV chamber size and function. Mild concentric left ventricular hypertrophy. Moderate left ventricular diastolic dysfunction. Grossly, the right ventricle appears mildly dilated with normal function. Unable to estimate RVSP due to lack of TR jet. No obvious significant valvular dysfunction. Qualifiers: Chest pain type: unspecified Qualified Code(s): R07.9 - Chest pain, unspecified (2) Diabetes Current Visit: Yes Status: Chronic Assessment and plan: Well controlled; A1C 5.2%. Continue sliding scale while admitted. Qualifiers: Diabetes mellitus type: type 2 Diabetes mellitus complication status: without complication Diabetes mellitus termination clerk insulin use: without termination clerk use Qualified Code(s): E11.9 - Type 2 diabetes mellitus without complications (3) Hypertension Current Visit: Yes Status: Chronic Assessment and plan: Controlled. We will continue to trend and adjust medications as indicated. On amlodipine and triamterene/HCTZ at home. These have been discontinued per cardiology, metoprolol has been added to his regimen Qualifiers: Hypertension type: essential hypertension Qualified Code(s): I10 - Essential (primary) hypertension (4) Hypercoagulable state Current Visit: No Status: Chronic Assessment and plan: Continue Xarelto (5) Chronic superficial venous thrombosis of left lower extremity Current Visit: No Status: Chronic (6) Morbid obesity with BMI of 40.0-44.9, adult Current Visit: Yes Status: Chronic - Subjective Interval history: Patient seen and examined prior to his [facility]. On examination, patient resting supine in bed conversing with his family. He is still endorsing chest pressure and mild shortness of breath, especially with exertion. He denies concerns or questions regarding his upcoming procedure. - Constitutional Vitals: Temp Pulse Resp BP Pulse Ox 97.3 F L 55 16 103/63 94 L 08/14/16 10:50 08/14/16 15:02 08/14/16 15:02 08/14/16 15:02 08/14/16 15:02 General appearance: Present: A&O X 3, morbidly obese, pleasant, no acute distress, answers questions appropriately - Head Head exam: Present: atraumatic, normocephalic - Eye Eye exam: Present: PERRL, conjuntiva pink, sclera anicteric Pupils: Present: PERRL - Neck Neck exam general surgery: Present: supple, trachea midline. Absent: lymphadenopathy - Respiratory Respiratory exam: Present: decreased breath sounds (2/2 body habitus). Absent: accessory muscle use, rales, respiratory distress, rhonchi, wheezes - Cardiovascular Cardiovascular exam: Present: RRR, +S1, +S2. Absent: diastolic murmur, gallop, rubs, systolic murmur - GI/Abdominal GI/Abdominal exam: Present: distended, normal bowel sounds, soft, no peritoneal signs. Absent: tenderness - Extremities Exam Extremities exam: Present: warm, radial pulses palpable and symetrical. Absent : calf tenderness, cyanotic, pedal edema - Neurological Exam Neurological exam: Present: alert, CN II-XII intact, oriented X3, no focal deficits, strengths equal and symetr throughout. Absent: pronater drift, facial droop, speech deficit - Skin Skin exam: Present: dry, intact, pallor, warm Internal Medicine: Result - Labs CBC & Chem 7: 08/14/16 04:20 08/14/16 04:20 Labs: Short CBC 08/14/16 Range/Units 04:20 WBC 8.0 (4.3-11.1) K/mcL Hgb 12.7 L (12.9-16.9) g/dL Hct 38.3 (37.5-50.1) % Plt Count 211 (140-400) K/mcL Neutrophils # 4.4 (1.6-8.9) K/mcL BMP 08/14/16 04:20 Sodium 141 Potassium 3.9 Chloride 112 H Carbon Dioxide 23 BUN 19 Creatinine 0.97 Glucose 113 H Calcium 8.8 - ABG Interpretation ABG results: PT/INR, D-dimer PT 18.7 Seconds (9.4-12.1) H 08/14/16 04:20 Consult Discharge Plan - Plan [facility]errals: [facility] [Primary Care Provider] -
--- NOTE | 2016-08-14 15:50 | Event Note ---
Date of Encounter: 08/14/16 Time of Encounter: 15:40 - Cardiology Event Note Cath results reviewed with Dr. Ford, no significant findings, will s/o, f/u with PCP to explore non-cardiac causes of CP.
[2016-08-14] MEDS: *HR* Rivaroxaban 10 MG TABLET PO SCH (16:26)
[2016-08-14] MEDS: Acetaminophen 325 MG TABLET PO PRN (19:06)
[2016-08-15] MEDS: Nitroglycerin 1 INCH/GM PACKET TP SCH (05:45)
[2016-08-15 07:29] VITALS: BP 118/77
[2016-08-15] MEDS: Insulin LISPRO 300 UNITS/3 ML VIAL SQ SCH (08:17)
[2016-08-15] MEDS: Aspirin 81 MG TAB.CHEW PO SCH (08:26)
[2016-08-15] MEDS: Loratadine 10 MG TABLET PO SCH (08:27)
[2016-08-15] MEDS: Gabapentin 400 MG CAPSULE PO SCH (08:27)
[2016-08-15] MEDS ORDERED: Isosorbide MONOnitrate (24 HR) 30 MG TAB.ER.24H PO SCH (09:00)
--- NOTE | 2016-08-15 11:16 | Discharge Summary ---
Date of Encounter: 08/15/16 Time of Encounter: 10:30 - Discharge Diagnosis (1) Chest pain Priority: Primary Status: Acute Comments: On day of discharge, patient continued to endorse intermittent chest tightness. Acute coronary syndrome ruled out. Left heart catheter unremarkable. Will change his Prilosec to twice a day before meals 08/14/16 Patient continues to endorse chest pressure. He states that his symptoms that are already started to let up prior to receiving the GI cocktail so he does not think that the GI cocktail helped him. Cardiology on board, plan is for a left heart catheter today. He also endorses mild shortness of breath above his norm with minimal exertion. Echocardiogram revealing ejection fraction of 60-65% with moderate diastolic dysfunction, patient may be a candidate for diuretic therapy. Cardiology on board. 08/13/16 Patient continues to endorse chest pressure but denies overt pain. Troponins negative 3. Chest x-ray negative. Stress test at [place] was reviewed per cardiology and reported as negative on 08/02/16. Echocardiogram revealing ejection fraction of 60-65% with moderate diastolic dysfunction. Cardiology is on board. Plan is to rule out GERD with PPI and GI cocktail. If he is still symptomatic, possible heart catheter tomorrow. Nothing by mouth at midnight. ITS Impressions Chest X-Ray 08/12/16 18:12 IMPRESSION: No acute cardiopulmonary disease D/ / Segundo Cárdenas MD / Segundo Cárdenas MD Interpreting Provider: Segundo Cárdenas MD Echocardiogram impressions: Technically suboptimal due to body habitus. LVEF 60 -65%. Grossly normal LV chamber size and function. Mild concentric left ventricular hypertrophy. Moderate left ventricular diastolic dysfunction. Grossly, the right ventricle appears mildly dilated with normal function. Unable to estimate RVSP due to lack of TR jet. No obvious significant valvular dysfunction. Qualifiers: Chest pain type: unspecified Qualified Code(s): R07.9 - Chest pain, unspecified (2) Diabetes Priority: Secondary Status: Chronic Comments: Well controlled; A1C 5.2%. Recommend continued follow-up palpation Qualifiers: Diabetes mellitus type: type 2 Diabetes mellitus complication status: without complication Diabetes mellitus longterm insulin use: without longterm use Qualified Code(s): E11.9 - Type 2 diabetes mellitus without complications (3) Hypertension Priority: Secondary Status: Chronic Comments: Controlled. Recommend continued monitoring and following up outpatient Qualifiers: Hypertension type: essential hypertension Qualified Code(s): I10 - Essential (primary) hypertension (4) Hypercoagulable state Priority: Secondary Status: Chronic Comments: Continue home xarelto (5) Chronic superficial venous thrombosis of left lower extremity Priority: Secondary Status: Chronic (6) Morbid obesity with BMI of 40.0-44.9, adult Priority: Secondary Status: Chronic - Discharge Medications Prescriptions: Atorvastatin [Lipitor] 40 mg PO HS #30 tablet Isosorbide MONOnitrate (24 HR) [Imdur] 30 mg PO DAILY #30 tab.er.24h Metoprolol [Lopressor] 25 mg PO BID #60 tablet Omeprazole [PriLOSEC] 20 mg PO BID #60 capsule. Rivaroxaban [Xarelto] 20 mg PO 1700 #60 tablet Home Medications: Budesonide/Formoterol 160/4.5 [Symbicort 160/4.5] 2 puff IH BIDR 08/09/15 [ History] Cetirizine HCl [Zyrtec] 10 mg PO DAILY 08/09/15 [History] Gabapentin [Neurontin] 1,200 mg PO TID 08/09/15 [History] Montelukast [Singulair] 10 mg PO DAILY 08/09/15 [History] Paroxetine [Paxil] 30 mg PO DAILY 08/09/15 [History] Albuterol Sulfate [Proventil Hfa] 2 puff IH QID 10/15/15 [History] Amlodipine Besylate 10 mg PO DAILY 12/07/15 [History] Albuterol Neb [Proventil Neb] 2.5 mg IH Q4HR 08/12/16 [History] Fluticasone Propionate Nasal [Flonase] 50 mcg NS BID 08/12/16 [History] Guaifenesin/Codeine Phosphate [Guaifen-Codeine 100-10 mg/5 ml] 10 ml PO TID PRN 08/12/16 [History] Hydroxyzine HCl 25 mg PO QID PRN 08/12/16 [History] Lactobacillus Acidophilus [Acidophilus] 1 cap PO BID 08/12/16 [History] Methocarbamol [Robaxin] 500 mg PO TID 08/12/16 [History] Tiotropium [place] [Spiriva Respimat] 2 puff IH DAILY 08/12/16 [History] Atorvastatin [Lipitor] 40 mg PO HS #30 tablet 08/15/16 [Rx] Isosorbide MONOnitrate (24 HR) [Imdur] 30 mg PO DAILY #30 tab.er.24h 08/15/16 [ Rx] Metoprolol [Lopressor] 25 mg PO BID #60 tablet 08/15/16 [Rx] Omeprazole [PriLOSEC] 20 mg PO BID #60 capsule.dr 08/15/16 [Rx] Rivaroxaban [Xarelto] 20 mg PO 1700 #60 tablet 08/15/16 [Rx] Allergies/Adverse Reactions: Allergies dabigatran etexilate [From Pradaxa] Allergy (Verified 08/12/16 20:37) Hives lisinopril Allergy (Verified 08/12/16 20:37) Anaphylaxis gluten Adverse Reaction (Verified 08/12/16 20:37) Gastrointestinal Upset pregabalin [From Lyrica] Adverse Reaction (Verified 08/12/16 20:37) Blurry Vision sertraline [From Zoloft] Adverse Reaction (Verified 08/12/16 20:37) Agitated Procedures/tests Complete & Pending: Procedures Performed prior 72 hours Category Date Time Status CL Cardiac Catheterization [CL] Routine Skin Carver 08/14/16 10:52 Ordered EV echocardiogram w enhance Routine Y 08/13/16 21:44 Completed Date of admission: 08/12/16 20:08 [facility] Consults: 08/12/16 21:42 Consult to Cardiology [CONS] Routine Comment: Consulting Provider: [facility] [place] Reason for Consult: CP Call Completed: Yes Discharging clinician: Glo Quinones Anticipated date of discharge: 08/15/16 - Patient Status Disposition: Home, Self-Care Condition: Good Functional capacity at discharge: independent ambulation Overall status at discharge: patient is back to baseline - Discharge Instructions Follow Up With: [facility] [Primary Care Provider] - Forms: ED Satisfaction Letter Additional Instructions: Follow-up with primary care provider and sql architect within 1-2 weeks - Diet and Activity Activity: increase activity as tolerated Diet: diabetic diet, low fat, low cholesterol, low salt diet Hospital course: Mr. Ho is a 50 year old male with past medical history of diabetes, asthma , right leg DVT with hypercoagulable state on Xarelto, vocal cord dysfunction, hyperlipidemia, hypertension, mood disorder, fibromyalgia, morbid obesity. Patient presented to the emergency department chief complaint chest pain that started on the afternoon of presentation and radiated to his left arm and neck that was pressure-like in sensation and improved with nitroglycerin. Workup in the emergency department unremarkable. Chest x-ray negative. EKG unremarkable. Patient was admitted to the hospitalist service for further evaluation and management. Echocardiogram revealing ejection fraction of 60-65 % with moderate diastolic dysfunction. Patient euvolemic on examination and denied shortness of breath throughout this admission. Troponins were negative. Patient had a stress test at [place] on 08/02/16 that was negative- reports obtained and reviewed during this visit. For further risk factor stratification, patient was started on a beta mechelle and a statin during this visit- aspirin not indicated as he is on Xarelto. His home triamterene/HCTZ discontinued. Cardiology was brought on board during this admission. Attempted a GI cocktail to rule out GERD as a causative factor given his atypical presentation however patient did not report relief with this medication. Given his risk factors, the decision was then made to proceed with a left heart catheter. Left heart catheter reported as unremarkable and the patient was started on Imdur (official catheter lab report not available at time of discharge). He was also kept on his Xarelto for his hypercoagulable state. He was discharged home in stable condition with close outpatient follow- up recommended. ITS Impressions Chest X-Ray 08/12/16 18:12 IMPRESSION: No acute cardiopulmonary disease D/ / Segundo Cárdenas MD / Segundo Cárdenas MD Interpreting Provider: Segundo Cárdenas MD Echocardiogram impressions: Technically suboptimal due to body habitus. LVEF 60 -65%. Grossly normal LV chamber size and function. Mild concentric left ventricular hypertrophy. Moderate left ventricular diastolic dysfunction. Grossly, the right ventricle appears mildly dilated with normal function. Unable to estimate RVSP due to lack of TR jet. No obvious significant valvular dysfunction. - Time Spent with Patient Total time spent providing and/or coordinating discharge services: - Constitutional Vitals: Temp Pulse Resp BP Pulse Ox 97.7 F 67 18 118/77 94 L 08/15/16 07:23 08/15/16 07:23 08/15/16 07:23 08/15/16 07:23 08/15/16 07:23 General appearance: Present: A&O X 3, morbidly obese, pleasant, no acute distress, answers questions appropriately - Head Head exam: Present: atraumatic, normocephalic - Eye Eye exam: Present: PERRL, conjuntiva pink, sclera anicteric Pupils: Present: PERRL - Neck Neck exam general surgery: Present: supple, trachea midline. Absent: lymphadenopathy - Respiratory Respiratory exam: Present: CTAB. Absent: accessory muscle use, rales, respiratory distress, rhonchi, wheezes - Cardiovascular Cardiovascular exam: Present: RRR, +S1, +S2. Absent: diastolic murmur, gallop, rubs, systolic murmur - GI/Abdominal GI/Abdominal exam: Present: distended, normal bowel sounds, soft, no peritoneal signs. Absent: tenderness - Extremities Exam Extremities exam: Present: warm, radial pulses palpable and symetrical. Absent : calf tenderness, cyanotic, pedal edema - Neurological Exam Neurological exam: Present: alert, CN II-XII intact, oriented X3, no focal deficits, strengths equal and symetr throughout. Absent: pronater drift, facial droop, speech deficit - Skin Skin exam: Present: dry, intact, normal color, warm
[2016-08-15] MEDS: Budesonide/Formoterol 160/4.5 MDI IH SCH (11:43)
[2016-08-15] MEDS: Acetaminophen 325 MG TABLET PO PRN (11:55)
--- NOTE | 2016-08-18 09:11 | Invasive Diagnostic Lab ---
Name: Dillon Ho Date of Study: 08/14/2016 Date: 1965 Ht: 177.8 cm /70.0 in Medical Record#: [id number] Age: 50 Wt: 131.3 kg / 289.47 lb Account/Order#: [id number] Gender: Male BSA: 2.44 Order #: [id number] Fluoro Dose: 172 mGy BMI: 41.53 Procedure Physician: Arya Springer MD, FACC Referring MD: Referring MD: Procedures Performed: LEFT HEART CATH Indications: Unstable Angina Impressions: Coronary arteries are angiographically normal. The left ventricle is normal and has normal contractility EF 65% Recommendations: Optimal medical therapy of patient's disease. Aggressive risk factor modification. History/Risk Factors: DJD fibromyalgia seizures DVT mood disorder depression vocal cord dysfunction Diabetes Hypertension Dyslipidemia Chronic Lung Disease Procedure Access obtained in the right Radial artery by percutaneous puncture Complications: None Contrast: Isovue 40ml Closure Device: Mechanical Compression Hemodynamics: Pressures Site Systolic/ A Wave Diastolic/ V Wave End Diastolic/ Mean HR AO 123 92 107 56 AO 119 88 102 51 LV 133 20 37 56 LV 131 23 39 56 AO 122 68 100 56 LV Ventriculography Ejection Method: LV Gram Wall Motion: FINE Anterobasal Normal Anterolateral Normal Apical: Normal Inferoapical Normal Inferobasal Normal Coronary Dominance: Left Lesion Findings/Interventions * Left Main Coronary Artery The LMCA is angiographically free of disease. * Left Anterior Descending The LAD is angiographically free of disease. The 1st Diagonal is angiographically free of disease. * Circumflex The Circumflex is angiographically free of disease. The 1st Marginal is angiographically free of disease. The Left PDA is angiographically free of disease. * Right Coronary Artery The RCA is angiographically free of disease. Updated by RT Connie (R) on 08/14/2016 2:41:47 PM Arya Springer MD, FACC electronically signed on 08/18/2016 9:06:09 AM with status of Final
== END 2016-08-15 12:06 | disposition home or self-care (01) | DRG 287 ==
LOC: EMEROO 17:16 → 3BNU 20:08
PROVIDERS: ADMIT Internal Medicine; ATTEND Nurse Practitioner Family

== ENCOUNTER 2017-12-23 15:02 | Inpatient (IN) ==
[2017-12-23 15:19] LABS: Basophils # 0.1 K/mcL (0.0-0.2); Basophils % 0.7 %; Eosinophils # 0.2 K/mcL (0.0-0.6); Eosinophils % 2.1 %; Hematocrit 45.6 % (37.5-50.1); Immature Granulocytes % 0.5 % (0-4); Lymphocytes # 3.1 K/mcL (0.6-4.6); Lymphocytes % 28.8 %; Mean Corpuscular HGB Conc 35.1 g/dL (31.6-35.5); Mean Corpuscular Hemoglobin 29.4 pg (28.0-33.3); Mean Corpuscular Volume 83.7 fL (83.0-100.0); Mean Platelet Volume 8.4 fL (9.4-12.4); Monocytes # 0.8 K/mcL (0.0-1.3); Monocytes % 7.7 %; Neutrophils # 6.5 K/mcL (1.6-8.9); Nucleated Red Blood Cells 0.2 /100 WBC (0); Platelet Count 197 K/mcL (140-400); Red Blood Count 5.45 M/mcL (4.19-5.50); Red Cell Distribution Width 13.4 % (11.5-14.5); Segmented Neutrophils % 60.2 %
[2017-12-23 15:25] LABS: INR 1.1; Prothrombin Time 12.4 Seconds (9.4-12.1)
--- NOTE | 2017-12-23 15:26 | Emergency Department Note ---
Disposition Clinical Impression: Left-sided weakness, Left sided numbness Disposition: Admitted As Inpatient Condition: Good [facility]errals: [facility],PC[facility] [Primary Care Provider] - Forms: ED Satisfaction Letter Neuro HPI - General Chief Complaint: ED Neuro Symptoms/Deficit Stated Complaint: Left Sided Weakness Time Seen by Provider: 12/23/17 15:04 Source: EMS Mode of arrival: EMS Limitations: no limitations Nursing Notes Reviewed: Yes Vital Signs Reviewed: Yes - History of Present Illness HPI Narrative: 52-year-old male history of hypertension, hyperlipidemia, diabetes with peripheral neuropathy presents to the ER from the [facility] due to concern for stroke. Reports he was therefore his usual appointments for neuropathy and around 1:30 experienced left-sided weakness as well as tingling and numbness. He denies a prior history of stroke in the past. Denies any head injury. He felt fine this morning when he woke up. He states he just feels overall off. He is not on any antiplatelet or anticoagulation medications. No other complaints. Onset of Symptoms Date: 12/23/17 Onset of Symptoms Time: 13:30 Symptom Onset Unknown: No Location: left face, left arm, left leg History of same: No Severity: mild Quality: weakness, numbness Symptoms Improving: No Improves with: none Worsens with: none Context: sudden onset On Anticoagulants: No Associated symptoms: Reports: denies other symptoms Treatments Prior to Arrival: none - Related Data Home Medications: Home Medications Medication Instructions Recorded Confirmed Budesonide/Formoterol 160/4.5 2 puff IH BIDR 08/09/15 03/10/17 [Symbicort 160/4.5] Cetirizine HCl [Zyrtec] 10 mg PO DAILY 08/09/15 03/10/17 Gabapentin [Neurontin] 1,200 mg PO TID 08/09/15 03/10/17 Montelukast [Singulair] 10 mg PO DAILY 08/09/15 03/10/17 Paroxetine [Paxil] 30 mg PO DAILY 08/09/15 03/10/17 Albuterol Sulfate [Proventil Hfa] 2 puff IH QID 10/15/15 03/10/17 Albuterol Neb [Proventil Neb] 2.5 mg IH Q4HR 08/12/16 03/10/17 Guaifenesin/Codeine Phosphate 10 ml PO TID PRN 08/12/16 03/10/17 [Guaifen-Codeine 100-10 mg/5 ml] Lactobacillus Acidophilus 1 cap PO BID 08/12/16 03/10/17 [Acidophilus] Methocarbamol [Robaxin] 500 mg PO TID 08/12/16 03/10/17 Tiotropium [place] [Spiriva 2 puff IH DAILY 08/12/16 03/10/17 Respimat] hydrOXYzine HCl [Hydroxyzine HCl] 25 mg PO QID PRN 08/12/16 03/10/17 Tramadol HCl [Ultram] 100 mg PO BID 03/10/17 03/10/17 Previous Rx's Medication Instructions Recorded Atorvastatin [Lipitor] 40 mg PO HS #30 tablet 08/15/16 Isosorbide MONOnitrate (24 HR) 30 mg PO DAILY #30 tab.er.24h 08/15/16 [Imdur] Metoprolol [Lopressor] 25 mg PO BID #60 tablet 08/15/16 Omeprazole [PriLOSEC] 20 mg PO BID #60 capsule.dr 08/15/16 Rivaroxaban [Xarelto] 20 mg PO 1700 #60 tablet 08/15/16 Allergies/Adverse Reactions: Allergies Allergy/AdvReac Type Severity Reaction Status Date / Time dabigatran etexilate Allergy Hives Verified 03/10/17 15:39 [From Pradaxa] lisinopril Allergy Anaphylaxis Verified 03/10/17 15:39 gluten AdvReac Gastrointestinal Verified 03/10/17 15:39 Upset pregabalin [From Lyrica] AdvReac Blurry Verified 03/10/17 15:39 Vision sertraline [From Zoloft] AdvReac Agitated Verified 03/10/17 15:39 All systems ED: reviewed and negative except as stated. Cardiovascular: Denies: chest pain Respiratory: Denies: dyspnea Gastrointestinal: Denies: abdominal pain Neurological: Reports: weakness, numbness, paresthesias. Denies: headache Past Medical History - Past Medical History Attestation: Yes The following information was validated with the patient. Source: patient Medical history: Reports: asthma, CHF, COPD, DVT, diabetes, fibromyalgia, GERD, hyperlipidemia, hypertension, seizures, other Surgical history: Reports: other Psychiatric history: Reports: depression - Social History Smoking Status: Never smoker Smokeless Tobacco Status: No Alcohol use: Reports: none Drug use: Reports: none Physical Exam - General Limitations: no limitations General appearance: alert, in no apparent distress - Head Head exam: atraumatic, normocephalic, normal inspection - Eye Eye exam: Present: normal appearance, EOMI - ENT ENT exam: normal exam - Neck Neck exam: Present: normal inspection - Chest Chest inspection: Present: normal inspection, symmetric chest wall rise - Respiratory Respiratory exam: Present: normal lung sounds bilaterally - Cardiovascular Cardiovascular exam: Present: regular rate, normal rhythm, normal heart sounds - Abdominal Exam Abdominal exam: Present: soft, Non-Tender. Absent: tenderness - Extremities Exam Extremities exam: Present: normal inspection, full ROM - Expanded Upper Extremity Exam Shoulder exam: Present: normal inspection, full ROM Arm exam: Present: normal inspection, full ROM Elbow exam: Present: normal inspection, full ROM Forearm/Wrist exam: Present: normal inspection, full ROM Hand exam: Present: normal inspection, full ROM - Expanded Lower Extremity Exam Hip/Pelvis exam: Present: normal inspection, full ROM Upper leg exam: Present: normal inspection, full ROM Knee exam: Present: normal inspection, full ROM Lower leg exam: Present: normal inspection, full ROM Ankle exam: Present: normal inspection, full ROM Foot/toe exam: Present: normal inspection, full ROM Neurovascular/Tendon exam: Present: sensory deficit (Decreased sensation to light touch in the left lower extremity). Absent: motor deficit - Neurological Exam Neurological exam: Present: alert, oriented X3, CN II-XII intact (With the exception of left facial paresthesias) - Expanded Neurological Exam Patient oriented to: Present: person, place, time Speech: Present: fluid speech Cranial nerves: EOM function (II, III, IV, ): Normal, facial sensation (V): Abnormal Left, spinal accessory function (XI): Normal, tongue deviation (XII): Normal Cerebellar function: finger to nose: Normal, heel to bright: Normal Motor strength - LUE: 4/5 Motor strength - RUE: 5/5 Motor strength - LLE: 4/5 Motor strength - RLE: 5/5 Sensory exam upper extremity: light touch: Abnormal Left Sensory exam lower extremity: light touch: Abnormal Left Coma Scale Eye Opening: Spontaneous Coma Scale Motor Response: Obeys Commands Coma Scale Verbal Response: Oriented Coma Scale Total: 15 - Skin Skin exam: Present: warm, dry Course Course Narrative: Patient seen and examined. Stroke alert called due to deficits. He has demonstrable weakness to the left upper and lower extremities as well as a loss of light sensation as compared to the right. He also reports that he just feels funny. NIH of 1 due to decreased sensation. Plan for emergent head CT, labs and discussion with stroke neurology at [facility]. - Reevaluation(s) Reevaluation #1: Discussed with patient about admission. Patient is comfortable being admitted to the hospital here. - Consultations Consultation #1: Patient evaluated by stroke neurologist at the [facility]. They do not recommend for TPA given the mildness of his symptoms. They do agree with admission for further workup. Patient comfortable staying here. Stroke alert canceled. Plan to give him a dose of aspirin now. Vital Signs Temperature 97.0 F L 12/23/17 15:04 Pulse Rate 55 12/23/17 15:04 Respiratory Rate 18 12/23/17 15:04 Blood Pressure 159/92 12/23/17 15:04 O2 Sat by Pulse Oximetry 97 12/23/17 15:04 Temperature 97.0 F L 12/23/17 15:04 Pulse Rate 55 12/23/17 16:12 Respiratory Rate 18 12/23/17 16:12 Blood Pressure 135/75 12/23/17 16:12 O2 Sat by Pulse Oximetry 98 12/23/17 16:12 Oxygen Delivery Oxygen Delivery Room Air Neuro Symptoms/Deficit - MDM Narrative Medical decision making narrative: 52-year-old male presents with left-sided weakness and numbness. Stroke alert activated. Head CT negative. Discussed with stroke neurology at [facility]. Patient was deemed to not be a candidate for TPA given mild symptoms. Agreeable with this plan. Labs reviewed. Aspirin given. Admitted to the hospitalist for CVA workup. - Lab Data Lab results reviewed: Yes I reviewed the patient's lab results. Result diagrams: 12/23/17 15:11 12/23/17 15:11 Lab Results 12/23/17 12/23/17 12/23/17 Range/Units 15:07 15:11 15:11 WBC 10.9 (4.3-11.1) K/mcL RBC 5.45 (4.19-5.50) M/mcL Hgb 16.0 (12.9-16.9) g/dL Hct 45.6 (37.5-50.1) % MCV 83.7 (83.0-100.0) fL MCH 29.4 (28.0-33.3) pg MCHC 35.1 (31.6-35.5) g/dL RDW 13.4 (11.5-14.5) % Plt Count 197 (140-400) K/mcL MPV 8.4 L (9.4-12.4) fL Immature Gran % 0.5 (0-4) % Seg Neutrophils % 60.2 % Lymphocytes % 28.8 % Monocytes % 7.7 % Eosinophils % 2.1 % Basophils % 0.7 % Neutrophils # 6.5 (1.6-8.9) K/mcL Lymphocytes # 3.1 (0.6-4.6) K/mcL Monocytes # 0.8 (0.0-1.3) K/mcL Eosinophils # 0.2 (0.0-0.6) K/mcL Basophils # 0.1 (0.0-0.2) K/mcL Nucleated RBCs/100 WBC 0.2 H (0) /100 WBC PT 12.4 H (9.4-12.1) Seconds INR 1.1 APTT 28.0 (26.0-36.0) Seconds Sodium (136-145) mEq/L Potassium (3.5-5.1) mEq/L Chloride (98-107) mEq/L Carbon Dioxide (23-29) mEq/L BUN (6-20) mg/dL Creatinine (0.70-1.30) mg/dL Est GFR ( Amer) (> 60) Est GFR (Non-Af Amer) (> 60) BUN/Creatinine Ratio (6-26) Glucose (70-105) mg/dL POC Glucose 75 (70-99) mg/dL Calculated Osmolality (280-300) Calcium (8.6-10.3) mg/dL Troponin I (< 0.04) ng/mL 12/23/17 Range/Units 15:11 WBC (4.3-11.1) K/mcL RBC (4.19-5.50) M/mcL Hgb (12.9-16.9) g/dL Hct (37.5-50.1) % MCV (83.0-100.0) fL MCH (28.0-33.3) pg MCHC (31.6-35.5) g/dL RDW (11.5-14.5) % Plt Count (140-400) K/mcL MPV (9.4-12.4) fL Immature Gran % (0-4) % Seg Neutrophils % % Lymphocytes % % Monocytes % % Eosinophils % % Basophils % % Neutrophils # (1.6-8.9) K/mcL Lymphocytes # (0.6-4.6) K/mcL Monocytes # (0.0-1.3) K/mcL Eosinophils # (0.0-0.6) K/mcL Basophils # (0.0-0.2) K/mcL Nucleated RBCs/100 WBC (0) /100 WBC PT (9.4-12.1) Seconds INR APTT (26.0-36.0) Seconds Sodium 140 (136-145) mEq/L Potassium 4.2 (3.5-5.1) mEq/L Chloride 105 (98-107) mEq/L Carbon Dioxide 26 (23-29) mEq/L BUN 25 H (6-20) mg/dL Creatinine 0.88 (0.70-1.30) mg/dL Est GFR ( Amer) > 60 (> 60) Est GFR (Non-Af Amer) > 60 (> 60) BUN/Creatinine Ratio 28 H (6-26) Glucose 78 (70-105) mg/dL POC Glucose (70-99) mg/dL Calculated Osmolality 293 (280-300) Calcium 9.3 (8.6-10.3) mg/dL Troponin I < 0.03 (< 0.04) ng/mL - Radiology Data Radiology results reviewed: Yes I reviewed the patient's radiology results. - EKG Data EKG attestation: Yes I reviewed and interpreted this EKG. EKG results narrative: EKG demonstrates sinus bradycardia with a rate of 54 bpm. Normal axis. First- degree AV block with DE interval 217. Normal R-wave progression. No gross ST elevations or depressions. No acute ischemic findings. No significant changes from previous EKG dated 08/12/16. NIH Stroke Scale - Level of Consciousness LOC: Alert - LOC Questions LOC Questions: Answers both correctly - LOC Commands LOC Commands: Performs both correctly - Best Gaze Best Gaze: Normal - Visual Visual: No visual loss - Facial Palsy Facial Palsy: Normal - Motor Arms Motor Arm-Left: No drift for 10 seconds Motor Arm-Right: No drift for 10 seconds - Motor Legs Motor Leg-Left: No drift for 5 seconds Motor Leg-Right: No drift for 5 seconds - Limb Ataxia Limb Ataxia: Absent of affected limb too weak to perform exam - Sensory Sensory: Mild to moderate loss, "not as sharp" - Best Language Best Language: No aphasia - Dysarthria Dysarthria: Normal - Extinction and Inattention Extinction and Inattention: Normal - NIHSS Total Score NIHSS Total Score: 1 TPA Checklist - LKW: 3-4.5 hrs Add. Warnings/Precautions Patient/family understanding: The patient/family members have been counseled and understood the risk, benefit , and alternatives of treatment. Werner - Werner Situation: Demographics, MOA Background: Presenting Complaint, Relevant PMH, Meds, & Allergies Assessment: Course and respsone to treatment, Exam Concerns, Patient/Family Expectation, Pertinant Lab Results Recommendation: Barrier(s) to disposition, Recommendation based on pending studies, treatments, or consults Werner Report Given to: Dr. Elmer Caldera Repor Time: 16:30
--- NOTE | 2017-12-23 15:35 | Emergency Department Note ---
START Narrative - START START: I examined this patient and my medical decision-making was reviewed with the Resident Physician. I agree with the documented findings, disposition and treatment plan as described except to the extent set forth below. 52yo M here for left sided weakness. GCS of 15. last known well time of 1: 30pm today. feels weak on left arm and leg with some numbness involving the left face area. no vision changes. no trauma. no falls. called an acute stroke alert upon arrival. CT head pending but no obvious bleed. pt will be set up with tele stroke cart. critical care time of 35 min spent in management of CVA, consultation with neurology. dispo admission vs transfer.
[2017-12-23 15:38] LABS: Troponin I < 0.03 ng/mL (< 0.04)
[2017-12-23] MEDS ORDERED: Aspirin 81 MG TAB.CHEW PO ONE (15:44)
[2017-12-23 16:14] LABS: BUN/Creatinine Ratio 28 (6-26); Blood Urea Nitrogen 25 mg/dL (6-20); Calcium 9.3 mg/dL (8.6-10.3); Carbon Dioxide 26 mEq/L (23-29); Chloride 105 mEq/L (98-107); Glucose 78 mg/dL (70-105); Osmolality,Calculated 293 (280-300); Potassium 4.2 mEq/L (3.5-5.1); Sodium 140 mEq/L (136-145); eGFR For African Americans > 60 (> 60); eGFR For Non-African Americans > 60 (> 60)
[2017-12-23] MEDS ORDERED: Naloxone 0.4 MG/ML INJ IVP PRN (17:44)
--- NOTE | 2017-12-23 17:59 | Internal Med History&Physical ---
Date of Encounter: 12/23/17 Time of Encounter: 17:50 Internal Medicine - H&P: HPI Admitted From: Hospital [facility]) History of present illness: Mr. Ho is a 52 year old male that started the day with an appointment with his neurolologist for persistent numbness and tingling in his feet. He then waited around for a second appointment and tripped and almost fell on his head around 1230. He then reported around 1330 that he had sudden onset of left sided numbness. [facility] facility. The patient has a hx of bradycardia, CP, DM, CHF, and thrombopheblitis of left leg. He also indicated that he has bradycardia and at times his heart-rate dips in the 30's. The patient's heartrate was as low as 39 while I was in the room. He was lying in the bed. Neuro check completed with only very mild difference noted to strength to left upper extremity, the patient indicated this had improved greatly since earlier. The patient appears hydrated well, na is 140. Blood glucose was only 75. Past Med Surg Social Fam HX - Past Medical History Medical history: asthma, CHF, COPD, DVT, diabetes, fibromyalgia, GERD, hyperlipidemia, hypertension, seizures, other Psychiatric history: depression - Past Surgical History Surgical History: other - Social History Smoking Status: Never smoker Smokeless Tobacco Status: No Alcohol use: none Drug use: none - Family History Grandfather Living Status: Hx Family Cardiac Disorders: Yes Father Living Status: Hx Family Cardiac Disorders: Yes (heart attack at 53) Mother Hx Family Cardiac Disorders: Yes (heart attack at 53) Internal Medicine - H&P: Meds Budesonide/Formoterol 160/4.5 [Symbicort 160/4.5] 2 puff IH BIDR 08/09/15 [ History] Cetirizine HCl [Zyrtec] 10 mg PO DAILY 08/09/15 [History] Gabapentin [Neurontin] 1,200 mg PO TID 08/09/15 [History] Montelukast [Singulair] 10 mg PO DAILY 08/09/15 [History] Paroxetine [Paxil] 30 mg PO DAILY 08/09/15 [History] Albuterol Sulfate [Proventil Hfa] 2 puff IH QID 10/15/15 [History] Albuterol Neb [Proventil Neb] 2.5 mg IH Q4HR 08/12/16 [History] Methocarbamol [Robaxin] 500 mg PO TID 08/12/16 [History] Atorvastatin [Lipitor] 40 mg PO HS #30 tablet 08/15/16 [Rx] Omeprazole [PriLOSEC] 20 mg PO BID #60 capsule. 08/15/16 [Rx] Tramadol HCl [Ultram] 100 mg PO BID 03/10/17 [History] Cholecalciferol (D-3) [Vitamin D] 2,000 unit PO DAILY 12/23/17 [History] Docusate Sodium [Dok] 100 mg PO BID 12/23/17 [History] Furosemide [Lasix] 20 mg PO DAILY 12/23/17 [History] Lidocaine 4% CRM (LMX) [Lmx 4] 1 appl TP QID PRN 12/23/17 [History] Metoprolol Succinate [Toprol Xl] 37.5 mg PO DAILY 12/23/17 [History] Potassium Chloride [Klor-Con 10] 10 meq PO DAILY 12/23/17 [History] 3 Allergy/AdvReac Type Severity Reaction Status Date / Time dabigatran etexilate Allergy Hives Verified 03/10/17 15:39 [From Pradaxa] lisinopril Allergy Anaphylaxis Verified 03/10/17 15:39 gluten AdvReac Gastrointestinal Verified 03/10/17 15:39 Upset pregabalin [From Lyrica] AdvReac Blurry Verified 03/10/17 15:39 Vision sertraline [From Zoloft] AdvReac Agitated Verified 03/10/17 15:39 All Systems PM: A 10-system review of systems was performed and is negative for pertinent findings except as documented above in the HPI. - Constitutional Constitutional: no chills, no fever(s), no night sweats - EENT Eyes: no change in vision, no discharge, no pain, no photophobia Ears: no ear discharge, no ear pain, no tinnitus Nose, mouth and throat: no dysphagia, no nasal discharge, no neck pain, no sore throat - Cardiovascular Cardiovascular ROS IM: no chest pain, no diaphoresis, no dyspnea, no lightheadedness, no palpitations, no syncope - Respiratory Respiratory: no cough, no dyspnea, no wheezing, no excessive phlegm production - Gastrointestinal Gastrointestinal: no abdominal pain, no diarrhea, no hematemesis, no hematochezia, no melena, no nausea, no vomiting - Musculoskeletal Musculoskeletal ROS IM: muscle weakness, numbness, tingling - Integumentary Integumentary IM: no rash, no unusual bruising - Neurological Neurological ROS: confusion, lack of coordination, numbness, tingling, weakness , no convulsions, no focal weakness, no tremor(s) - Psychiatric Psychiatric: other (Forgetfulness) - Hematologic/Lymphatic Hematologic/Lymphatic: no easy bruising - Constitutional Vitals: Temp Pulse Resp BP Pulse Ox 97.0 F L 55 18 135/75 98 12/23/17 15:04 12/23/17 16:12 12/23/17 16:12 12/23/17 16:12 12/23/17 16:12 General appearance: Present: cooperative, A&O X 3 - Head Head exam: Present: atraumatic, normocephalic - Eye Eye exam: Present: PERRL, conjuntiva pink, sclera anicteric Pupils: Present: PERRL - Neck Neck exam general surgery: Present: supple, trachea midline. Absent: lymphadenopathy - Respiratory Respiratory exam: Present: CTAB. Absent: accessory muscle use, rales, rhonchi, wheezes - Cardiovascular Cardiovascular exam: Present: bradycardia (As low as 39 bpm), +S1, +S2. Absent : diastolic murmur, gallop, rubs, systolic murmur - GI/Abdominal GI/Abdominal exam: Present: normal bowel sounds, soft, no peritoneal signs. Absent: distended, tenderness - Extremities Exam Extremities exam: Present: warm, radial pulses palpable and symmetrical. Absent : calf tenderness, cyanotic, pedal edema - Neurological Exam Neurological exam: Present: CN II-XII intact (mild left hand weakness), oriented X3, no focal deficits. Absent: pronater drift, facial droop, speech deficit - Skin Skin exam: Present: dry, intact Internal Med - H&P Results - Labs CBC & Chem 7: 12/23/17 15:11 12/23/17 15:11 - Assessment and plan (1) Left-sided weakness Current Visit: Yes Status: Acute Assessment and plan: Scheduled MRI of brain. Neuro checks q shift. Ortho static bp's. Up with assist only.Will add parameters to cardiac medications. (2) Hypertension Current Visit: No Status: Chronic Assessment and plan: Bp is controlled at this time. The patient will continue current cardiac home medications. Qualifiers: Hypertension type: essential hypertension Qualified Code(s): I10 - Essential (primary) hypertension (3) Bradycardia Current Visit: Yes Status: Chronic Assessment and plan: Patient indicated that this is a chronic issue. Cardiac monitoring. Parameters with heart meds. Orthostatics ordered - Time Spent With Patient Total time spent is greater than 50% in coordination of care (as documented) at patient's floor/unit and/or counseling patient: 25 - 35 minutes
[2017-12-23] MEDS: Methocarbamol 500 MG TABLET PO SCH (22:17)
[2017-12-23] MEDS: traMADol 50 MG TABLET PO SCH (22:18)
[2017-12-23] MEDS: Gabapentin 400 MG CAPSULE PO SCH (22:19)
[2017-12-23] MEDS: Budesonide/Formoterol 160/4.5 MDI IH SCH (22:49)
[2017-12-24 03:09] LABS: Hematocrit 43.9 % (37.5-50.1); Hemoglobin 15.4 g/dL (12.9-16.9); Immature Granulocytes % 0.4 % (0-4); Lymphocytes % 31.1 %; Mean Corpuscular HGB Conc 35.1 g/dL (31.6-35.5); Mean Corpuscular Hemoglobin 29.4 pg (28.0-33.3); Mean Corpuscular Volume 83.8 fL (83.0-100.0); Mean Platelet Volume 8.4 fL (9.4-12.4); Monocytes % 7.3 %; Platelet Count 174 K/mcL (140-400); Red Blood Count 5.24 M/mcL (4.19-5.50); Red Cell Distribution Width 13.3 % (11.5-14.5); Segmented Neutrophils % 58.1 %
[2017-12-24 03:10] LABS: Basophils # 0.1 K/mcL (0.0-0.2); Basophils % 0.6 %; Eosinophils # 0.2 K/mcL (0.0-0.6); Eosinophils % 2.5 %; Lymphocytes # 2.9 K/mcL (0.6-4.6); Monocytes # 0.7 K/mcL (0.0-1.3); Neutrophils # 5.5 K/mcL (1.6-8.9)
[2017-12-24 03:25] LABS: BUN/Creatinine Ratio 28 (6-26); Blood Urea Nitrogen 22 mg/dL (6-20); Calcium 9.1 mg/dL (8.6-10.3); Carbon Dioxide 26 mEq/L (23-29); Chloride 106 mEq/L (98-107); Chol/HDL Ratio 4.2 (0-4.9); Cholesterol 183 mg/dL (< 200); Glucose 93 mg/dL (70-105); HDL Cholesterol 44 mg/dL (40-59); LDL Cholesterol,Calculated 96 mg/dL (0-99); Osmolality,Calculated 291 (280-300); Potassium 4.1 mEq/L (3.5-5.1); Sodium 139 mEq/L (136-145); Triglycerides 216 mg/dL (< 150); eGFR For African Americans > 60 (> 60); eGFR For Non-African Americans > 60 (> 60)
[2017-12-24] MEDS: Gabapentin 400 MG CAPSULE PO SCH ×3 (08:58→21:17)
[2017-12-24] MEDS: Loratadine 10 MG TABLET PO SCH (08:58)
[2017-12-24] MEDS: Cholecalciferol (D-3) 1,000 UNIT TABLET PO SCH (08:58)
[2017-12-24] MEDS: traMADol 50 MG TABLET PO SCH ×2 (08:59→21:17)
[2017-12-24] MEDS: Methocarbamol 500 MG TABLET PO SCH ×3 (08:59→21:17)
[2017-12-24] MEDS: Metoprolol XL (24 HR) Succ 25 MG TAB.ER.24H PO SCH (08:59)
[2017-12-24] MEDS: Furosemide 20 MG TABLET PO SCH (08:59)
--- NOTE | 2017-12-24 10:13 | Discharge Summary ---
<Alexys Bah - Last Filed: 12/25/17 09:52> - NOTES TO OUTPATIENT PROVIDER Notes to Outpatient Provider: He presented to [place] on 12/23/17 with abrupt onset of numbness and slight weakness on his left side. He was admitted for concerns of CVA. By the time he was seen the following morning he had complete resolution of his symptoms. He had initially received a head CT and brain MRI, but given his risk factors and family history of CVA/TIAs he underwent further evaluation including carotid Dopplers and echocardiogram. A head CT and brain MRI were both normal and does not show signs of hemorrhage or infarct. The echocardiogram did not show significant abnormalities in the carotid Dopplers did not reveal any stenotic plaque. He was seen by neurology who recommended he start an 81 mg aspirin daily. He will need to follow-up with his neurologist and PCP regarding further risk factor reduction for cerebrovascular events. He was started on 81mg aspirin per the recommendation of the neurologist. Orders not resulted at time of discharge: Pending orders 12/23/17 18:28 EV echocardiogram Routine 12/25/17 04:00 Basic Metabolic Panel AM 0400 Complete Blood Count [HEME] AM 0400 Date of Encounter: 12/25/17 Time of Encounter: 08:05 - Discharge Diagnosis (1) TIA (transient ischemic attack) Priority: Primary Status: Resolved Qualifiers: Transient cerebral ischemia type: other Qualified Code(s): G45.8 - Other transient cerebral ischemic attacks and related syndromes (2) Hypertension Priority: Primary Status: Chronic Qualifiers: Hypertension type: essential hypertension Qualified Code(s): I10 - Essential (primary) hypertension (3) Left sided numbness Priority: Secondary Status: Resolved (4) Left-sided weakness Priority: Secondary Status: Resolved (5) Morbid obesity with BMI of 40.0-44.9, adult Priority: Primary Status: Chronic (6) CHF (congestive heart failure) Priority: Primary Status: Chronic Qualifiers: Heart failure type: diastolic Heart failure chronicity: chronic Qualified Code(s): I50.32 - Chronic diastolic (congestive) heart failure Hospital course: Mr. Ho is a 52 year old male with prior medical history of COPD, CHF, DVT, fibromyalgia, hyperlipidemia, hypertension and prediabetes He presented to [place] on 12/23/17 with abrupt onset of numbness and slight weakness on his left side. He was admitted for concerns of CVA. By the time he was seen the following morning he had complete resolution of his symptoms. He had initially received a head CT and brain MRI, but given his risk factors and family history of CVA/TIAs he underwent further evaluation including carotid Dopplers and echocardiogram. A head CT and brain MRI were both normal and does not show signs of hemorrhage or infarct. The echocardiogram did not show significant abnormalities in the carotid Dopplers did not reveal any stenotic plaque. He was seen by neurology who recommended he start an 81 mg aspirin daily. He will need to follow-up with his neurologist and PCP regarding further risk factor reduction for cerebrovascular events. He was started on 81mg aspirin per the recommendation of the neurologist. Patient states/stable for discharge having had resolution of all symptoms and no significant findings and workup. Discharge discussed with: patient, nurse, social work - Time Spent with Patient Total time spent providing and/or coordinating discharge services: Greater than 30 minutes - Discharge Medications Prescriptions: Aspirin 81 mg PO DAILY #30 tab.chew Home Medications: Budesonide/Formoterol 160/4.5 [Symbicort 160/4.5] 2 puff IH BIDR 08/09/15 [ History] Cetirizine HCl [Zyrtec] 10 mg PO DAILY 08/09/15 [History] Gabapentin [Neurontin] 1,200 mg PO TID 08/09/15 [History] Montelukast [Singulair] 10 mg PO DAILY 08/09/15 [History] Paroxetine [Paxil] 30 mg PO DAILY 08/09/15 [History] Albuterol Sulfate [Proventil Hfa] 2 puff IH QID 10/15/15 [History] Albuterol Neb [Proventil Neb] 2.5 mg IH Q4HR 08/12/16 [History] Methocarbamol [Robaxin] 500 mg PO TID 08/12/16 [History] Atorvastatin [Lipitor] 40 mg PO HS #30 tablet 08/15/16 [Rx] Omeprazole [PriLOSEC] 20 mg PO BID #60 capsule. 08/15/16 [Rx] Tramadol HCl [Ultram] 100 mg PO BID 03/10/17 [History] Cholecalciferol (D-3) [Vitamin D] 2,000 unit PO DAILY 12/23/17 [History] Docusate Sodium [Dok] 100 mg PO BID 12/23/17 [History] Furosemide [Lasix] 20 mg PO DAILY 12/23/17 [History] Lidocaine 4% CRM (LMX) [Lmx 4] 1 appl TP QID PRN 12/23/17 [History] Metoprolol Succinate [Toprol Xl] 37.5 mg PO DAILY 12/23/17 [History] Potassium Chloride [Klor-Con 10] 10 meq PO DAILY 12/23/17 [History] Aspirin 81 mg PO DAILY #30 tab.chew 12/25/17 [Rx] Allergies/Adverse Reactions: 3 Allergy/AdvReac Type Severity Reaction Status Date / Time dabigatran etexilate Allergy Hives Verified 03/10/17 15:39 [From Pradaxa] lisinopril Allergy Anaphylaxis Verified 03/10/17 15:39 gluten AdvReac Gastrointestinal Verified 03/10/17 15:39 Upset pregabalin [From Lyrica] AdvReac Blurry Verified 03/10/17 15:39 Vision sertraline [From Zoloft] AdvReac Agitated Verified 03/10/17 15:39 Date of admission: 12/23/17 17:24 [facility] Discharging clinician: Alexys Bah Anticipated date of discharge: 12/25/17 - Constitutional Vitals: Temp Pulse Resp BP Pulse Ox 97.1 F L 46 15 114/82 93 12/24/17 06:44 12/24/17 06:44 12/24/17 06:44 12/24/17 06:57 12/24/17 06:44 General appearance: Present: cooperative, A&O X 3 Exam: General: Cooperative, pleasant, no acute distress, alert and oriented 3, answers questions appropriately HEENT: Normocephalic, atraumatic, Conjunctiva pink, sclera anicteric, oral mucosa moist Respiratory: No accessory muscle usage, clear to auscultation bilaterally, no wheezes/rhonchi/rales appreciated Cardiovascular: Regular rate and rhythm, S1 and S2 present, no murmurs/rubs/ gallops/clicks appreciated GI/abdominal: Nondistended, nontender, soft, normal bowel sounds, no peritoneal signs Extremities: No calf tenderness, mild pedal edema appreciated, warm, lower extremity pulses palpable and symmetrical Neurological: Alert and oriented 3, no facial droop, no focal deficits Skin: Dry, intact, normal color - Patient Status Disposition: Home, Self-Care Condition: Good Functional capacity at discharge: independent ambulation Overall status at discharge: patient is back to baseline - Discharge Instructions Instructions: Ischemic Stroke (DC), Ischemic Stroke (GEN) [facility]: [facility] Provider[facility] - 12/30/17 10:15 am Additional Instructions: Please return to emergency department if redevelopment of numbness, weakness, or falls. Development of changes in her vision, slurred speech, asymmetric weakness, asymmetric numbness, or facial droop are concerning for signs of stroke and should prompt a return to ED. Physical medications as prescribed: 81 mg aspirin daily Please follow-up with her PCP in 1-2 weeks to discuss continuation of aspirin and discuss continuation of metoprolol in relation to your bradycardia. Please follow-up with her neurologist in 1-2 weeks - Diet and Activity Activity: increase activity as tolerated Diet: low fat, low cholesterol, low salt diet <Douglas Sanchez - Last Filed: 12/25/17 15:47> Date of Encounter: 12/25/17 - Discharge Diagnosis (1) TIA (transient ischemic attack) Status: Resolved Qualifiers: Transient cerebral ischemia type: other Qualified Code(s): G45.8 - Other transient cerebral ischemic attacks and related syndromes (2) Hypertension Status: Chronic Qualifiers: Hypertension type: essential hypertension Qualified Code(s): I10 - Essential (primary) hypertension (3) Morbid obesity with BMI of 40.0-44.9, adult Priority: Secondary Status: Chronic (4) Left-sided weakness Status: Resolved (5) Left sided numbness Status: Resolved (6) CHF (congestive heart failure) Priority: Secondary Status: Chronic Qualifiers: Heart failure type: diastolic Heart failure chronicity: chronic Qualified Code(s): I50.32 - Chronic diastolic (congestive) heart failure Hospital course: Mr. Ho is a 52 year old male - Time Spent with Patient Total time spent providing and/or coordinating discharge services: 38min Date of admission: 12/24/17 12:59 [facility] care [facility] - Constitutional Vitals: Temp Pulse Resp BP Pulse Ox 98.0 F 61 16 105/73 96 12/25/17 07:00 12/25/17 07:00 12/25/17 07:50 12/25/17 07:00 12/25/17 07:50 - Attending Attestation I examined this patient and my medical decision-making was reviewed with the Resident Physician on 12/25/17. I agree with the documented findings, disposition and treatment plan as described except to the extent set forth below. Mr Ho has been admitted for probable TIA. He has had further work up which has been negative. He currently is afebrile and symptoms have improved. He is ready for discharge home and outpatient follow up. Exam alert Comfortable at rest Mucus membranes dry Heart reg No wheeze abd soft No edema Plan D/C home today Follow up with PCP.
[2017-12-24] MEDS: Budesonide/Formoterol 160/4.5 MDI IH SCH ×2 (10:16→19:43)
--- NOTE | 2017-12-24 10:54 | Internal Med Progress Note ---
<Alexys aBh - Last Filed: 12/24/17 15:31> Date of Encounter: 12/24/17 Time of Encounter: 08:05 - Assessment and plan (1) TIA (transient ischemic attack) Current Visit: Yes Status: Resolved Assessment and plan: Patient presented with weakness and numbness of <24 hours duration He has had resolution of his symptoms MRI and CT head are negative Family history of CVA/TIA Significant risk factors including: htn, hld, DM Neurology has been consulted and appreciate recommendations for continued management/care Will start aspirin 81 mg daily Continue home Lipitor Carotid Dopplers ordered Echocardiogram ordered Qualifiers: Transient cerebral ischemia type: other Qualified Code(s): G45.8 - Other transient cerebral ischemic attacks and related syndromes (2) CHF (congestive heart failure) Current Visit: Yes Status: Acute Assessment and plan: Last echo performed in August 2016 showed left ventricular ejection fraction is 6065% with moderate left ventricular diastolic dysfunction and mild concentric left ventricular hypertrophy Continue home medications Monitor fluid status closely Qualifiers: Heart failure type: diastolic Heart failure chronicity: chronic Qualified Code(s): I50.32 - Chronic diastolic (congestive) heart failure (3) COPD (chronic obstructive pulmonary disease) Current Visit: Yes Status: Chronic Assessment and plan: Previous stable, not in exacerbation Continue medications Qualifiers: COPD type: unspecified COPD Qualified Code(s): J44.9 - Chronic obstructive pulmonary disease, unspecified (4) Hypertension Current Visit: Yes Status: Chronic Assessment and plan: Blood pressure stable Continue home medications Qualifiers: Hypertension type: essential hypertension Qualified Code(s): I10 - Essential (primary) hypertension (5) Morbid obesity with BMI of 40.0-44.9, adult Current Visit: No Status: Chronic (6) DVT prophylaxis Current Visit: Yes Status: Acute Assessment and plan: 5000 units heparin subcutaneous 3 times a day - Time Spent With Patient Total time spent is greater than 50% in coordination of care (as documented) at patient's floor/unit and/or counseling patient: - Subjective Interval history: Patient is resting comfortably. He states he is had resolution of his symptoms. He denies having continued weakness, denies numbness (other than his chronic neuropathy), denies any lightheadedness or vertigo. He denies fever/chills, denies chest pain, denies dyspnea. - Constitutional Vitals: Temp Pulse Resp BP Pulse Ox 97.1 F L 46 15 114/82 93 12/24/17 06:44 12/24/17 06:44 12/24/17 06:44 12/24/17 06:57 12/24/17 06:44 General appearance: Present: cooperative, A&O X 3 Exam: General: Cooperative, pleasant, no acute distress, alert and oriented 3, answers questions appropriately HEENT: Normocephalic, atraumatic, neck supple, trachea midline, Conjunctiva pink , sclera anicteric, EOMI, PERRL, oral mucosa moist Respiratory: No accessory muscle usage, clear to auscultation bilaterally, no wheezes/rhonchi/rales appreciated Cardiovascular: Regular rate and rhythm, S1 and S2 present, no murmurs/rubs/ gallops/clicks appreciated GI/abdominal: Nondistended, nontender, soft, normal bowel sounds, no peritoneal signs Extremities: No calf tenderness, no pedal edema appreciated, warm, lower extremity pulses palpable and symmetrical Neurological: Alert and oriented 3, no facial droop, no focal deficits, cranial nerves II through XII grossly intact without deficits, rapid alternating movements intact, finger to nose smooth without tremors, bilateral strength 5/5 in upper and lower extremities, positional light touch grossly intact in upper and lower extremities Skin: Dry, intact, normal color Internal Medicine: Result - Labs CBC & Chem 7: 12/24/17 02:54 12/24/17 02:54 Labs: Short CBC 12/24/17 Range/Units 02:54 WBC 9.5 (4.3-11.1) K/mcL Hgb 15.4 (12.9-16.9) g/dL Hct 43.9 (37.5-50.1) % Plt Count 174 (140-400) K/mcL Neutrophils # 5.5 (1.6-8.9) K/mcL BMP 12/24/17 02:54 Sodium 139 Potassium 4.1 Chloride 106 Carbon Dioxide 26 BUN 22 H Creatinine 0.79 Glucose 93 Calcium 9.1 Cardiac Enzymes 12/23/17 12/24/17 12/24/17 Range/Units 21:44 02:54 09:19 Troponin I < 0.03 < 0.03 < 0.03 (< 0.04) ng/mL - ABG Interpretation ABG results: PT/INR, D-dimer PT 12.4 Seconds (9.4-12.1) H 12/23/17 15:11 - Impressions Impressions Brain MRI 12/23/17 17:48 IMPRESSION: Stable exam without acute findings. D/ / Rubin Arteaga / Rubin Arteaga Interpreting Provider: Rubin Arteaga Consult Discharge Plan - Plan Instructions: Ischemic Stroke (DC), Ischemic Stroke (GEN) [facility]errals: [facility] [Primary Care Provider[facility] - <Douglas Sanchez - Last Filed: 12/24/17 18:46> Date of Encounter: 12/24/17 - Assessment and plan (1) TIA (transient ischemic attack) Current Visit: Yes Status: Resolved Qualifiers: Transient cerebral ischemia type: other Qualified Code(s): G45.8 - Other transient cerebral ischemic attacks and related syndromes (2) Hypertension Current Visit: Yes Status: Chronic Qualifiers: Hypertension type: essential hypertension Qualified Code(s): I10 - Essential (primary) hypertension (3) Morbid obesity with BMI of 40.0-44.9, adult Current Visit: No Status: Chronic (4) CHF (congestive heart failure) Current Visit: Yes Status: Chronic Qualifiers: Heart failure type: diastolic Heart failure chronicity: chronic Qualified Code(s): I50.32 - Chronic diastolic (congestive) heart failure (5) COPD (chronic obstructive pulmonary disease) Current Visit: Yes Status: Chronic Qualifiers: COPD type: unspecified COPD Qualified Code(s): J44.9 - Chronic obstructive pulmonary disease, unspecified (6) DVT prophylaxis Current Visit: Yes Status: Acute - Time Spent With Patient Total time spent is greater than 50% in coordination of care (as documented) at patient's floor/unit and/or counseling patient: - Constitutional Vitals: Temp Pulse Resp BP Pulse Ox 98.1 F 63 18 127/78 96 12/24/17 16:28 12/24/17 16:28 12/24/17 16:28 12/24/17 16:28 12/24/17 16:28 Internal Medicine: Result - Labs CBC & Chem 7: 12/24/17 02:54 12/24/17 02:54 - ABG Interpretation ABG results: PT/INR, D-dimer PT 12.4 Seconds (9.4-12.1) H 12/23/17 15:11 - Attending Attestation I examined this patient and my medical decision-making was reviewed with the Resident Physician . I agree with the documented findings, disposition and treatment plan as described except to the extent set forth below. Mr Ho is currently admitted for acute TIA symptoms. He remains moderate to high risk due to potential for worsening clinical status. Mr Ho has no more symptoms. No fever or chills. No GI issues. MRI no stroke. Other tests pending. Exam alert Comfortable Mucus membranes dry Not tachy No wheeze I/P 1. TIA 2. HTN Further diagnoses and plan as above.
--- NOTE | 2017-12-24 12:22 | Neurology - Consult Note ---
<AvelinaIsaiah - Last Filed: 12/24/17 13:17> Date of Encounter: 12/24/17 Time of Encounter: 11:30 Assessment and Plan (1) Left-sided weakness Current Visit: Yes Status: Acute TIA-like symptoms Both CT and MRI of the head of the negative for acute stroke. Symptoms completely resolved at this point. Echocardiogram and carotid Doppler is ordered. Patient does have significant risk factors, including hypertension, hyperlipidemia, and diabetes. Patient should continue both statin and aspirin as an outpatient. Further recommendations pending echo and doppler. (2) Left sided numbness Current Visit: Yes Status: Acute See plan of care above History of Present Illness Chief complaint: left sided numbness and weakness HPI: Dillon Ho is a 52 year old male who presented with left-sided weakness and numbness. Patient had been seeing his [place] neurologist for peripheral neuropathy. After this appointment he had a fall, though he is unsure if he was dizzy at the time or tripped. Shortly after this, he began to develop left- sided weakness in both the upper and lower extremity and numbness. He presented to the ER and was evaluated by [facility] neurology via tele-stroke. NIH was 1. Due to the mildness of his symptoms, TPA was not indicated. CT of the head was without acute findings and he was administered aspirin. All of his symptoms to begin to resolve within a few hours. Patient additionally complains of frequent headaches. He also describes tunnel vision that occurs infrequently, the last episode happening approximately one year ago. He also complains of trouble with short-term memory. Patient has a history of hypertension, hyperlipidemia, and diabetes. His mother experienced a severe stroke, and his sister had several TIAs. Past Med Surg Social Fam HX - Past Medical History Medical history: asthma, CHF, COPD, DVT, diabetes, fibromyalgia, GERD, hyperlipidemia, hypertension, seizures, other Psychiatric history: depression - Past Surgical History Surgical History: other - Social History Smoking Status: Never smoker Smokeless Tobacco Status: No Alcohol use: none Drug use: none - Family History Grandfather Living Status: Hx Family Cardiac Disorders: Yes Father Living Status: Hx Family Cardiac Disorders: Yes (heart attack at 53) Mother Hx Family Cardiac Disorders: Yes (heart attack at 53) Medications and Allergies Budesonide/Formoterol 160/4.5 [Symbicort 160/4.5] 2 puff IH BIDR 08/09/15 [ History] Cetirizine HCl [Zyrtec] 10 mg PO DAILY 08/09/15 [History] Gabapentin [Neurontin] 1,200 mg PO TID 08/09/15 [History] Montelukast [Singulair] 10 mg PO DAILY 08/09/15 [History] Paroxetine [Paxil] 30 mg PO DAILY 08/09/15 [History] Albuterol Sulfate [Proventil Hfa] 2 puff IH QID 10/15/15 [History] Albuterol Neb [Proventil Neb] 2.5 mg IH Q4HR 08/12/16 [History] Methocarbamol [Robaxin] 500 mg PO TID 08/12/16 [History] Atorvastatin [Lipitor] 40 mg PO HS #30 tablet 08/15/16 [Rx] Omeprazole [PriLOSEC] 20 mg PO BID #60 capsule. 08/15/16 [Rx] Tramadol HCl [Ultram] 100 mg PO BID 03/10/17 [History] Cholecalciferol (D-3) [Vitamin D] 2,000 unit PO DAILY 12/23/17 [History] Docusate Sodium [Dok] 100 mg PO BID 12/23/17 [History] Furosemide [Lasix] 20 mg PO DAILY 12/23/17 [History] Lidocaine 4% CRM (LMX) [Lmx 4] 1 appl TP QID PRN 12/23/17 [History] Metoprolol Succinate [Toprol Xl] 37.5 mg PO DAILY 12/23/17 [History] Potassium Chloride [Klor-Con 10] 10 meq PO DAILY 12/23/17 [History] 3 Allergy/AdvReac Type Severity Reaction Status Date / Time dabigatran etexilate Allergy Hives Verified 03/10/17 15:39 [From Pradaxa] lisinopril Allergy Anaphylaxis Verified 03/10/17 15:39 gluten AdvReac Gastrointestinal Verified 03/10/17 15:39 Upset pregabalin [From Lyrica] AdvReac Blurry Verified 03/10/17 15:39 Vision sertraline [From Zoloft] AdvReac Agitated Verified 03/10/17 15:39 All Systems: The remainder of the systems were reviewed and are negative Review of Systems: A 10 point review of systems was completed and was negative except as noted in the HPI. Physical Examination - Vital Signs Vital Signs: Initial Vital Signs Temp Pulse Resp BP Pulse Ox 97.0 F L 55 18 159/92 97 12/23/17 15:04 12/23/17 15:04 12/23/17 15:04 12/23/17 15:04 12/23/17 15:04 - Exam Exam: CONSTITUTIONAL: Well-developed and well-nourished. Comfortable and in no acute distress. CARDIOVASCULAR: Regular rate and rhythm. +S1 and S2. No bruits noted over the carotids. CHEST: Normal work of breathing. NEURO: Mental Status: Alert and oriented x3. Follows commands and answers questions. Long-term memory intact to presidents. Short-term recall /. Cranial Nerves: PERRL. EOMI. Visual garcia intact. Symmetrical facial strength. Facial sensation intact. No dysarthria. Hearing intact. Soft palate elevates symmetrically. SCM and trapezius without weakness. Tongue protrudes in midline. Motor: Left - 5/5 in upper and lower extremities. Right - 5/5 in upper and lower extremities. Decreased sensation in the feet bilaterally. Cerebellar function intact to [id number]. Results - Laboratory Findings CBC and BMP: 12/24/17 02:54 12/24/17 02:54 Abnormal lab findings: Abnormal lab results MPV 8.4 fL (9.4-12.4) L 12/24/17 02:54 Nucleated RBCs/100 WBC 0.2 /100 WBC (0) H 12/23/17 15:11 PT 12.4 Seconds (9.4-12.1) H 12/23/17 15:11 BUN 22 mg/dL (6-20) H 12/24/17 02:54 BUN/Creatinine Ratio 28 (6-26) H 12/24/17 02:54 Triglycerides 216 mg/dL (< 150) H 12/24/17 02:54 VLDL Cholesterol, Calc 43 mg/dL (< 31) H 12/24/17 02:54 Consult Discharge Plan - Plan [facility]: [facility] Care Provider[facility] - <Abhi Boateng - Last Filed: 12/24/17 15:19> Date of Encounter: 12/24/17 Time of Encounter: 15:15 Assessment and Plan (1) Left sided numbness Current Visit: Yes Status: Acute (2) Left-sided weakness Current Visit: Yes Status: Acute I agree with Dr. Quan's assessment as stated above. Patient does have stroke risk factors therefore I agree with stroke workup stroke work up and treatment. Recommwnd resuming ASA 81mg QD. I will follow-up with him tomorrow and give further comments based on the outcome of the echocardiogram and carotid Doppler. History of Present Illness HPI: The chart was reviewed, the patient was seen and examined independently along with the resident physician. I agree with his assessment as stated above. All Systems: The remainder of the systems were reviewed and are negative Review of Systems: The balance of the systems review is negative. Physical Examination - Vital Signs Vital Signs: Initial Vital Signs Temp Pulse Resp BP Pulse Ox 97.0 F L 55 18 159/92 97 12/23/17 15:04 12/23/17 15:04 12/23/17 15:04 12/23/17 15:04 12/23/17 15:04 - Neurologic Detailed motor examination: full strength in all major muscle groups Motor examination - right side: 5/5: deltoids, biceps, triceps, wrist flexion, wrist extension, professor of music, hip flexors, tibialis Anterior, quadriceps, toe extension (EHL), plantarflexion Motor examination - left side: 5/5: deltoids, biceps, triceps, wrist flexion, wrist extension, hip flexors, professor of music, quadriceps, tibialis Anterior, toe extension (EHL), plantarflexion Mental Status Examination: awake, alert, oriented to person, oriented to place, oriented to time, follows commands appropriately, answers questions appropriately, no agnosia, no aphasia, no aproxia Cranial nerve examination: PERRL, EOMI, visual garcia intact, corneal reflexes brisk symmetrically, sensory to face intact, mastication intact, no facial asymmetry is present, no dysarthria, hearing is intact symmetrically, soft palate elevates bilaterally upon phonation, gag reflex intact, flexes SCM and trapezius muscles symmetrically with full power, tongue protrudes midline, no atrophy or facial fasiculations present Cerebellar examination: no dysmetria, performs finger to nose and heel to bright symmetrically without ataxia, no gait ataxia, no truncal ataxia, no difficulty with rapid alternating movements Results - Laboratory Findings CBC and BMP: 12/24/17 02:54 12/24/17 02:54 Abnormal lab findings: Abnormal lab results MPV 8.4 fL (9.4-12.4) L 12/24/17 02:54 Nucleated RBCs/100 WBC 0.2 /100 WBC (0) H 12/23/17 15:11 PT 12.4 Seconds (9.4-12.1) H 12/23/17 15:11 BUN 22 mg/dL (6-20) H 12/24/17 02:54 BUN/Creatinine Ratio 28 (6-26) H 12/24/17 02:54 Triglycerides 216 mg/dL (< 150) H 12/24/17 02:54 VLDL Cholesterol, Calc 43 mg/dL (< 31) H 12/24/17 02:54
[2017-12-24] MEDS: Aspirin 81 MG TAB.CHEW PO SCH (12:39)
[2017-12-24] MEDS: *HR* Heparin 5,000 UNIT/ML VIAL SQ SCH (15:38)
[2017-12-25] MEDS: *HR* Heparin 5,000 UNIT/ML VIAL SQ SCH ×2 (01:20→09:16)
[2017-12-25 04:29] LABS: Basophils # 0.1 K/mcL (0.0-0.2); Basophils % 0.7 %; Eosinophils # 0.3 K/mcL (0.0-0.6); Eosinophils % 2.9 %; Hematocrit 46.7 % (37.5-50.1); Hemoglobin 15.7 g/dL (12.9-16.9); Immature Granulocytes % 0.3 % (0-4); Lymphocytes # 3.5 K/mcL (0.6-4.6); Lymphocytes % 34.7 %; Mean Corpuscular HGB Conc 33.6 g/dL (31.6-35.5); Mean Corpuscular Volume 83.4 fL (83.0-100.0); Mean Platelet Volume 8.5 fL (9.4-12.4); Monocytes # 0.9 K/mcL (0.0-1.3); Monocytes % 8.4 %; Neutrophils # 5.4 K/mcL (1.6-8.9); Platelet Count 185 K/mcL (140-400); Red Cell Distribution Width 13.4 % (11.5-14.5)
[2017-12-25 04:47] LABS: BUN/Creatinine Ratio 27 (6-26); Blood Urea Nitrogen 26 mg/dL (6-20); Calcium 9.4 mg/dL (8.6-10.3); Carbon Dioxide 23 mEq/L (23-29); Chloride 106 mEq/L (98-107); Glucose 95 mg/dL (70-105); Osmolality,Calculated 293 (280-300); Potassium 4.2 mEq/L (3.5-5.1); Sodium 139 mEq/L (136-145); eGFR For African Americans > 60 (> 60); eGFR For Non-African Americans > 60 (> 60)
[2017-12-25 07:15] VITALS: BP 105/73
[2017-12-25] MEDS: Budesonide/Formoterol 160/4.5 MDI IH SCH (07:50)
[2017-12-25] MEDS: Aspirin 81 MG TAB.CHEW PO SCH (09:16)
[2017-12-25] MEDS: Furosemide 20 MG TABLET PO SCH (09:17)
[2017-12-25] MEDS: Loratadine 10 MG TABLET PO SCH (09:17)
[2017-12-25] MEDS: Cholecalciferol (D-3) 1,000 UNIT TABLET PO SCH (09:17)
[2017-12-25] MEDS: Gabapentin 400 MG CAPSULE PO SCH (09:17)
[2017-12-25] MEDS: Metoprolol XL (24 HR) Succ 25 MG TAB.ER.24H PO SCH (09:17)
[2017-12-25] MEDS: Methocarbamol 500 MG TABLET PO SCH (09:18)
[2017-12-25] MEDS: traMADol 50 MG TABLET PO SCH (09:21)
--- NOTE | 2017-12-25 22:49 | Electrocardiograph Report ---
[address] [address] Test Date: 2017-12-23 Pat Name: Dillon Ho Department: 103 Room: 2NE22 Gender: M Tool Repairer: : 1965 Requested By: Douglas Sanchez Order Number: [id number] Reading MD: Vicki Cuello Measurements Intervals [place] Rate: 54 P: 38 [place]: 217 QRS: -3 QRSD: 77 T: 39 QT: 408 QTc: 395 Interpretive Statements SINUS BRADYCARDIA WITH FIRST DEGREE AV BLOCK LOW QRS VOLTAGE IN PRECORDIAL LEADS [QRS DEFLECTION < 1.0 mV IN CHEST LEADS] Electronically Signed On 12-25-2017 22:48:12 EDT by Vicki Cuello
== END 2017-12-25 14:51 | disposition home or self-care (01) | DRG 69 ==
LOC: EMEROO 15:02 → 2NENU 15:02 → SUATTDRO 17:24 → 2NENU 19:42
PROVIDERS: ADMIT General Practice; ATTEND Internal Medicine